=== PATIENT | male | born 1955 | race African-American/Black ===

== ENCOUNTER 2021-05-11 18:12 | Inpatient (IN) | payer OTHER ==
[~2021-05-11] VITALS: Ht 180.3 cm; Wt 92.1 kg
[2021-05-11] MEDS ORDERED: MORPHINE SULFATE 10 MG/ML VIAL. IV ONE (20:15)
--- NOTE | 2021-05-11 20:15 | PHYS DOC ---
Past Medical History Past Medical History: CAD Past Surgical History: Coronary Bypass Surgery Smoking Status: Never Smoker Alcohol Use: None Drug Use: None General Adult EDM: Chief Complaint: ABDOMINAL PAIN HPI: HPI: 65-year-old male with a history of CAD status post CABG presents to the emergency department with multiple complaints including abdominal pain around his hernia site that started yesterday. He reports that he has been sore around his hernia for several months, but last night he had increasing pain in the hernia area notes that his stools have been lower caliber without any looseness for the last several days. Denies any blood. He reports that he feels like he is going to pass out at times that has been intermittent for the last several weeks. He denies any chest pain. He admits to some shortness of breath without cough or fever. Denies any vomiting or nausea. He reports his pain is worse upon going up the stairs in his abdomen. He denies any acute trauma. Review of Systems: Review of Systems: ROS is otherwise negative except for what was mentioned in the HPI Heart Score: C/O Chest Pain: No Allergies: Allergies: No known allergies Physical Exam: PE: Constitutional: No acute distress, non-toxic appearance. HENT: Atraumatic, bilateral external ears normal, nose normal. Eyes: PERRLA, EOMI, conjunctiva normal, no discharge. Neck: Normal range of motion, supple, no stridor. Cardiovascular: Heart rate regular rhythm. 2+ radial pulses Lungs & Thorax: No respiratory distress, symmetrical expansion. Bilateral breath sounds clear to auscultation Abdomen: Soft, no tenderness Skin: Warm, dry. Genitourinary: No evidence of infection, no scrotal tenderness, no erythema, there is diffuse edema to the scrotum and penis Extremities: No tenderness, no cyanosis, ROM intact, 2+ lower extremity edema present Neurologic: Alert and oriented X 3, normal motor function, normal sensory function, no focal deficits noted. Non ataxic gait. GCS 15. Psychologic: Affect normal, judgment normal, mood normal. Current Patient Data: Labs: Laboratory Tests Test 05/11/21 20:18 05/11/21 21:33 White Blood Count 7.7 x10^3/uL (4.0-11.0) Red Blood Count 4.32 x10^6/uL (4.30-5.70) Hemoglobin 13.2 g/dL (13.0-17.5) Hematocrit 40.0 % (39.0-53.0) Mean Corpuscular Volume 93 fL (79-100) Mean Corpuscular Hemoglobin 31 pg (25-35) Mean Corpuscular Hemoglobin Concent 33 g/dL (31-37) Red Cell Distribution Width 15.6 % (11.5-14.5) Platelet Count 157 x10^3/uL (140-400) Neutrophils (%) (Auto) 77 % (31-73) Lymphocytes (%) (Auto) 12 % (24-48) Monocytes (%) (Auto) 10 % (0-9) Eosinophils (%) (Auto) 1 % (0-3) Basophils (%) (Auto) 1 % (0-3) Neutrophils # (Auto) 5.9 x10^3/uL (1.8-7.7) Lymphocytes # (Auto) 0.9 x10^3/uL (1.0-4.8) Monocytes # (Auto) 0.8 x10^3/uL (0.0-1.1) Eosinophils # (Auto) 0.1 x10^3/uL (0.0-0.7) Basophils # (Auto) 0.0 x10^3/uL (0.0-0.2) Sodium Level 143 mmol/L (136-145) Potassium Level 3.9 mmol/L (3.5-5.1) Chloride Level 103 mmol/L (98-107) Carbon Dioxide Level 36 mmol/L (21-32) Anion Gap 4 (6-14) Blood Urea Nitrogen 19 mg/dL (8-26) Creatinine 1.4 mg/dL (0.7-1.3) Estimated GFR (Cockcroft-Gault) 61.7 BUN/Creatinine Ratio 14 (6-20) Glucose Level 89 mg/dL (70-99) Calcium Level 8.4 mg/dL (8.5-10.1) Total Bilirubin 1.1 mg/dL (0.2-1.0) Aspartate Amino Transf (AST/SGOT) 54 U/L (15-37) Alanine Aminotransferase (ALT/SGPT) 44 U/L (16-63) Alkaline Phosphatase 102 U/L (46-116) Troponin I Quantitative 0.226 ng/mL (0.000-0.055) PY-Kpn-O-Type Natriuretic Peptide 5330 pg/mL (0-124) Total Protein 6.7 g/dL (6.4-8.2) Albumin 2.8 g/dL (3.4-5.0) Albumin/Globulin Ratio 0.7 (1.0-1.7) Lipase 88 U/L (73-393) Prothrombin Time 14.5 SEC (11.7-14.0) Prothromb Time International Ratio 1.1 (0.8-1.1) Activated Partial Thromboplast Time 29 SEC (24-38) Vital Signs: Vital Signs Date Time Temp Pulse Resp B/P (MAP) Pulse Ox O2 Delivery O2 Flow Rate FiO2 05/11/21 23:15 64 18 167/70 (102) 96 Nasal Cannula 2.0 05/11/21 21:45 64 18 174/74 (107) 97 05/11/21 21:37 73 183/78 05/11/21 21:30 72 19 183/78 (113) 98 05/11/21 21:00 78 18 201/89 (126) 92 Nasal Cannula 2.0 05/11/21 20:53 96 Room Air 05/11/21 20:52 78 22 201/89 (126) 96 Room Air 05/11/21 20:22 76 28 189/82 (117) 95 Room Air 05/11/21 19:45 98.1 87 20 172/109 (130) 97 Room Air 98.1 EKG: EKG: Time read: 2008 Normal sinus rhythm rate of 80, T wave inversions are present in the lateral and inferior leads, 2 mm elevation in V2, occasional PAC, normal axis, normal IL, QRS, and QTc intervals. Impression: Nonspecific ST-T wave changes, no prior for comparison. Interpreted by me, Durga Faustin D.O. Repeat EKG at 2106 shows no acute change. Radiology/Procedures: Radiology/Procedures: PROCEDURE: CT ABD PELV W/ORAL&IV CONTRAST INDICATION: Reason: abd pain, hernia;OMNI 240,30ML; OMNI 300, 75ML / Spl. Instructions: / History: COMPARISON: None. TECHNIQUE: Axial CT images were obtained through the abdomen and pelvis with intravenous co ntrast. One or more of the following individualized dose reduction techniques were utilized for this examination: 1. Automated exposure control; 2. Adjustment of the mA and/or kV according to patient size; 3. Use of iterative reconstruction technique. FINDINGS: Small pleural effusions partially seen as well as groundglass and interstitial opacities at the lung bases. The heart is enlarged. Vascular: Calcific atherosclerosis. Diffuse edema and fluid at the scrotal soft tissues extending into the subc utaneous soft tissues of the penis. There is also edema seen throughout the fat within the upper legs as well as the abdomen and pelvis. Hepatobiliary: Mild nodularity of the liver contour. Mild prominence of the gallbladder wall suspected. Pancreas: Indistinctness the fat within the region. Indeterminate left adrenal nodule measuring 21 mm. Spleen: Spleen unremarkable. Renal/Bladder: Exophytic right renal lesion which does not measure as a simple cyst measuring 27 mm. Additional suspected subcentimeter too small to characterize left renal lesions. No hydronephrosis. Urinary bladder is partially distended. Prostate calcifications. Gastrointestinal: There is some presacral edema. Colonic diverticulosis. Fat- containing umbilical hernia. Appendix does not appear dilated. Degenerative changes the spine with multilevel central canal and neural foraminal stenosis. IMPRESSION: * No evidence of bowel obstruction or appendicitis. * Diffuse edema throughout the soft tissues as well as small pleural effusions which could be secondary to volume overload. There is also groundglass and interstitial opacities at the lung bases which can be from edema or interstitial infiltrate. * There is a large amount of fluid and edema seen at the scrotal wall soft tissues extending into the penile region. Would correlate with physical exam findings to ensure that this is not infectious in nature. There is edema seen throughout the soft tissues elsewhere in the abdomen and pelvis which could be secondary to volume overload. * Mild prominence of the gallbladder wall is suspected which is a nonspecific finding and could be related to the patient's volume overload but would correlate with symptoms and if there is any symptoms ultrasound could better assess to ensure there is not gallbladder inflammation. * Haziness the fat is also seen adjacent to the pancreas which could be related to the patient's diffuse edematous process but mild pancreatitis is not excluded. * Indeterminate left adrenal nodule as well as a couple of indeterminate bilateral renal lesions. If further evaluation is desired either MRI or CT adrenal and renal protocol could further assess on a nonemergent basis. * Fat-containing left inguinal and umbilical hernia. Electronically signed by: Carroll Saunders MD (05/11/2021 11:13 PM) DESKTOP- [id number] Course & Med Decision Making: Course & Med Decision Making Patient with evidence of fluid overload on examination. EKG showed J-point elevation in V2 but, no obvious STEMI pattern. I discussed the EKG with retail key holder. he was given Lasix, aspirin. Care discussed with retail key holder Dr. Zheng who recommends heparin drip and admission to the hospital. Patient remains without chest pain or typical ACS symptoms. CT scan is as above, there is no infectious signs on examination suggestive of Sanju's gangrene, patient likely has anasarca from CHF exacerbation My Orders - DURGA FAUSTIN DO Procedure Category Date Status Time Ct Abd Pelv W/Oral&Iv CT 05/11/21 Resulted Contrast 20:05 Morphine Sulfate PHA 05/11/21 Complete (Morphine Sulfate) 20:15 Portable Chest 1v RAD 05/11/21 Taken 20:05 Nt-Pro Bnp LAB 05/11/21 Complete 20:05 [facility] LAB 05/11/21 Complete 20:05 [facility] 05/11/21 Logged 23:05 [facility] LAB 05/12/21 Verified 02:05 12 Lead Ekg EKG 05/11/21 Logged 20:05 12 Lead Ekg EKG 05/11/21 Logged 20:35 Partial LAB 05/11/21 Complete Thromboplastin Time 20:58 Protime With Inr LAB 05/11/21 Complete 20:58 Heparin CARLINE 05/11/21 In Process Administration Instruc 20:58 Notify Provider CARLINE 05/11/21 In Process 20:58 Hemogram LAB 05/12/21 Verified 05:00 Hemogram LAB 05/14/21 Verified 05:00 Hemogram LAB 05/16/21 Verified 05:[address] Lab CARLINE 05/11/21 In Process Order 20:58 Heparin For Iv Bolus PHA 05/11/21 Complete (Heparin Sodium) 21:00 Heparin PHA 05/11/21 In Process 25,000uts/250ml 21:00 Heparin For Iv Bolus PHA 05/11/21 In Process (Heparin Sodium) 21:00 Cbc W Autodiff LAB 05/11/21 Complete 21:08 Comprehensive LAB 05/11/21 Complete Metabolic Panel 21:08 Lipase LAB 05/11/21 Complete 21:08 Labetalol Iv Push PHA 05/11/21 Complete (Normodyne Iv Push) 21:15 Sars Cov2 ([place]) LAB 05/11/21 In Process 21:32 Sars Antigen Adelita Rapid LAB 05/11/21 In Process 21:32 Iohexol 240 Mg/Ml PHA 05/11/21 Complete (Omnipaque 240 Mg/Ml) 22:00 Iohexol 300 Mg/Ml PHA 05/11/21 Complete (Omnipaque 300 Mg/Ml) 22:00 Contrast Given -- PHA 05/11/21 In Process Info Only (Contrast Gi 22:00 Contrast Given -- PHA 05/11/21 In Process Info Only (Contrast Gi 22:00 Ondansetron Pf PHA 05/11/21 Complete (Zofran) 22:00 Metoclopramide Vial PHA 05/11/21 Complete (Reglan Vial) 22:30 Aspirin (Martín PHA 05/11/21 Complete Aspirin) 22:45 Furosemide Inj (Lasix) PHA 05/11/21 Complete 23:30 [place] Order ADT 05/11/21 Transmitted 23:26 Code Status CODE 05/11/21 Transmitted 23:26 Vital Signs, Per Unit CARLINE 05/11/21 In Process Protocol 23:26 Nothing By Mouth DIET 05/12/21 Transmitted Breakfast Fall Precautions CARLINE 05/11/21 In Process 23:26 Cbc W Autodiff LAB 05/12/21 Verified 06:00 Basic Metabolic Panel LAB 05/12/21 Verified 06:00 Ondansetron Pf PHA 05/11/21 In Process (Zofran) 23:30 Acetaminophen PHA 05/11/21 In Process (Tylenol) 23:30 Vp Treasurer CARLINE 05/11/21 In Process 23:26 Vital Signs Q4h CARLINE 05/11/21 In Process 23:26 Cardiology Consult CONS 05/11/21 Transmitted 23:26 Departure Departure Impression: Primary Impression: NSTEMI (non-ST elevated myocardial infarction) Additional Impression: Anasarca Disposition: 09 ADMITTED INPATIENT Admitting Physician: LILIANA Martinez) Condition: STABLE DURGA FAUSTIN DO May 11, 2021 20:15
[2021-05-11] MEDS ORDERED: HEPARIN 25,000UTS/250ML PREMIX 250 ML IV PRN (21:00)
[2021-05-11] MEDS ORDERED: HEPARIN for IV BOLUS 10,000 UNIT/10 ML VIAL. IV ONE (21:00)
[2021-05-11] MEDS ORDERED: HEPARIN for IV BOLUS 10,000 UNIT/10 ML VIAL. IV PRN (21:00)
[2021-05-11] MEDS ORDERED: LABETALOL 20 MG/4 ML DISP.SYRIN. IVP ONE (21:15)
[2021-05-11 21:43] LABS: BASO % 1 % (0-3); EOS # 0.1 x10^3/uL (0.0-0.7); EOS % 1 % (0-3); HEMOGLOBIN 13.2 g/dL (13.0-17.5); LYMPH # 0.9 x10^3/uL (1.0-4.8); LYMPH % 12 % (24-48); MEAN CORPUSCULAR HEMOGLOBIN 31 pg (25-35); MEAN CORPUSCULAR HGB CONC 33 g/dL (31-37); MEAN CORPUSCULAR VOLUME 93 fL (79-100); MONO # 0.8 x10^3/uL (0.0-1.1); MONO % 10 % (0-9); NEUT # 5.9 x10^3/uL (1.8-7.7); NEUT % 77 % (31-73); PLATELET COUNT 157 x10^3/uL (140-400); RED BLOOD COUNT 4.32 x10^6/uL (4.30-5.70); RED CELL DISTRIBUTION WIDTH 15.6 % (11.5-14.5); WHITE BLOOD COUNT 7.7 x10^3/uL (4.0-11.0)
[2021-05-11 21:46] LABS: CALCIUM 8.4 mg/dL (8.5-10.1); CREATININE 1.4 mg/dL (0.7-1.3); GFR 61.7; POTASSIUM 3.9 mmol/L (3.5-5.1)
[2021-05-11 21:49] LABS: PROTHROMBIN TIME PATIENT 14.5 SEC (11.7-14.0)
[2021-05-11 21:51] LABS: ALBUMIN 2.8 g/dL (3.4-5.0); ALBUMIN/GLOBULIN RATIO 0.7 (1.0-1.7); TOTAL BILIRUBIN 1.1 mg/dL (0.2-1.0); TOTAL PROTEIN 6.7 g/dL (6.4-8.2)
[2021-05-11] MEDS ORDERED: CONTRAST GIVEN. MC PRN ×2 (22:00)
[2021-05-11] MEDS ORDERED: ONDANSETRON PF 4 MG/2 ML VIAL. IVP ONE (22:00)
[2021-05-11] MEDS ORDERED: IOHEXOL 300 MG/ML 100ML VIAL. IV ONE (22:00)
[2021-05-11] MEDS ORDERED: IOHEXOL 240 MG/ML 50ML VIAL. PO ONE (22:00)
[2021-05-11] MEDS ORDERED: METOCLOPRAMIDE HCL 10 MG/2 ML VIAL. IVP ONE (22:30)
[2021-05-11] MEDS ORDERED: ASPIRIN 325 MG TABLET PO ONE (22:45)
--- NOTE | 2021-05-11 23:16 | RAD ---
INDICATION: Reason: abd pain, hernia;OMNI 240,30ML; OMNI 300, 75ML / Spl. Instructions: / History: COMPARISON: None. TECHNIQUE: Axial CT images were obtained through the abdomen and pelvis with intravenous contrast. One or more of the following individualized dose reduction techniques were utilized for this examinat ion: 1. Automated exposure control; 2. Adjustment of the mA and/or kV according to patient size; 3 . Use of iterative reconstruction technique. FINDINGS: Small pleural effusions partially seen as well as groundglass and interstitial opacities at the lung bases. The heart is enlarged. Vascular: Calcific atherosclerosis. Diffuse edema and fluid at the scrotal soft tissues extending into the subcutaneous soft tissues of t he penis. There is also edema seen throughout the fat within the upper legs as well as the abdomen and pelvis. Hepatobiliary: Mild nodularity of the liver contour. Mild prominence of the gallbladder wall suspecte d. Pancreas: Indistinctness the fat within the region. Indeterminate left adrenal nodule measuring 21 mm. Spleen: Spleen unremarkable. Renal/Bladder: Exophytic right renal lesion which does not measure as a simple cyst measuring 27 mm. Additional suspected subcentimeter too small to characterize left renal lesions. No hydronephrosis. U rinary bladder is partially distended. Prostate calcifications. Gastrointestinal: There is some presacral edema. Colonic diverticulosis. Fat-containing umbilical her silvia. Appendix does not appear dilated. Degenerative changes the spine with multilevel central canal and neural foraminal stenosis. IMPRESSION: * No evidence of bowel obstruction or appendicitis. * Diffuse edema throughout the soft tissues as well as small pleural effusions which could be second bryn to volume overload. There is also groundglass and interstitial opacities at the lung bases which can be from edema or interstitial infiltrate. * There is a large amount of fluid and edema seen at the scrotal wall soft tissues extending into th e penile region. Would correlate with physical exam findings to ensure that this is not infectious in nature. There is edema seen throughout the soft tissues elsewhere in the abdomen and pelvis which co uld be secondary to volume overload. * Mild prominence of the gallbladder wall is suspected which is a nonspecific finding and could be r elated to the patient's volume overload but would correlate with symptoms and if there is any symptom s ultrasound could better assess to ensure there is not gallbladder inflammation. * Haziness the fat is also seen adjacent to the pancreas which could be related to the patient's dif fuse edematous process but mild pancreatitis is not excluded. * Indeterminate left adrenal nodule as well as a couple of indeterminate bilateral renal lesions. If further evaluation is desired either MRI or CT adrenal and renal protocol could further assess on a nonemergent basis. * Fat-containing left inguinal and umbilical hernia. Electronically signed by: Carroll Saunders MD (05/11/2021 11:13 PM) [id number]
[2021-05-11] MEDS ORDERED: FUROSEMIDE 40 MG/4 ML VIAL. IVP ONE (23:30)
[2021-05-11] MEDS ORDERED: ACETAMINOPHEN 325 MG TABLET. PO PRN (23:30)
--- NOTE | 2021-05-12 00:09 | RAD ---
INDICATION: Reason: shortness of breath / Spl. Instructions: / History: COMPARISON: None. FINDINGS: Single view of chest obtained. Enlarged cardiomediastinal silhouette. Poststernotomy changes. Patchy opacities at lung bases Enlargement of the right pulmonary hilum IMPRESSION: * Enlarged cardiomediastinal Silhouette which can be seen with cardiomegaly and/or pericardial effus ion. * Enlargement of the right pulmonary hilum which can be from pulmonary hypertension with another pos sible cause including lymphadenopathy or a hilar mass. * Patchy opacities at the lung bases which can be seen with atelectasis or infiltrate. Electronically signed by: Carroll Saunders MD (05/12/2021 12:07 AM) [id number]
[2021-05-12] MEDS: ONDANSETRON PF 4 MG/2 ML VIAL. IVP PRN ×2 (00:19→09:00)
[2021-05-12 00:38] VITALS: BP 186/84
[2021-05-12] MEDS ORDERED: IOHEXOL 240 MG/ML 50ML VIAL. ONE (02:56)
[2021-05-12] MEDS ORDERED: IOHEXOL 300 MG/ML 100ML VIAL. ONE (02:56)
--- NOTE | 2021-05-12 03:20 | NUR ---
Admit from ED to [facility] room 650. A/O x 4. Pleasant. Cooperative. Fatigued. Edematous. O2 2L NC in place on arrival from ED as well as Heparin drip started in ER and infusing. Orientated to unit and call light. Reviewed POC. Verbalized understanding. Lasix 40mg IVP given in ER. Patient admits to urinary retention. Attempted Riojas cath placement for accurate I&O and retention. Unable to insert Riojas. Bloody urine noted after Riojas insertion attempt. Resting in bed. Call light at hand. Bed alarm on.
[2021-05-12 03:50] VITALS: BP 151/80
--- NOTE | 2021-05-12 04:45 | EKG ---
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
--- NOTE | 2021-05-12 04:46 | EKG ---
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
[2021-05-12 04:49] LABS: BASO % 0 % (0-3); EOS % 0 % (0-3); HEMATOCRIT 37.8 % (39.0-53.0); HEMOGLOBIN 12.6 g/dL (13.0-17.5); LYMPH # 0.4 x10^3/uL (1.0-4.8); LYMPH % 6 % (24-48); MEAN CORPUSCULAR HEMOGLOBIN 31 pg (25-35); MEAN CORPUSCULAR HGB CONC 33 g/dL (31-37); MEAN CORPUSCULAR VOLUME 93 fL (79-100); MONO # 0.2 x10^3/uL (0.0-1.1); MONO % 4 % (0-9); NEUT # 5.4 x10^3/uL (1.8-7.7); NEUT % 90 % (31-73); PLATELET COUNT 143 x10^3/uL (140-400); RED BLOOD COUNT 4.06 x10^6/uL (4.30-5.70); RED CELL DISTRIBUTION WIDTH 15.3 % (11.5-14.5)
[2021-05-12 05:02] LABS: CALCIUM 8.2 mg/dL (8.5-10.1); CREATININE 1.3 mg/dL (0.7-1.3); GFR 67.2; POTASSIUM 3.4 mmol/L (3.5-5.1)
--- NOTE | 2021-05-12 05:51 | NUR ---
Bladder scan reflects 230ML in bladder.
[2021-05-12 07:00] VITALS: BP 144/65
[2021-05-12] MEDS ORDERED: FLU VACC QUAD 21-22 (6MOS+) PF 0.5 ML SYRINGE. VAX IM ONE (09:00)
[2021-05-12 09:39] LABS: CHOLESTEROL/HDL RATIO 2.8
[2021-05-12] MEDS ORDERED: oxyCODONE/APAP 5/325 1 TAB TABLET PO PRN (10:45)
[2021-05-12] MEDS ORDERED: ACETAMINOPHEN 325 MG TABLET. PO PRN (10:45)
[2021-05-12] MEDS ORDERED: oxyCODONE IR 5 MG TABLET PO PRN (10:45)
[2021-05-12] MEDS ORDERED: ZOLPIDEM 5 MG TABLET. PO PRN (10:45)
[2021-05-12] MEDS ORDERED: POTASSIUM CHLORIDE 20 MEQ TABLET.ER. PO ONE (10:45)
[2021-05-12] MEDS ORDERED: ELECTROLYTE (NON-ICU) PROTOCOL. MC PRN (10:45)
[2021-05-12] MEDS ORDERED: ONDANSETRON PF 4 MG/2 ML VIAL. IVP PRN (10:45)
[2021-05-12] MEDS ORDERED: CALCIUM CARBONATE 500 MG TAB.CHEW PO PRN (10:45)
--- NOTE | 2021-05-12 10:50 | PDOC2 ---
KYLER WILSON MARINE ELECTRICIAN APPRENTICE 05/12/21 1050: CARDIAC CONSULT DATE OF CONSULT Date of Consult DATE: 05/12/21 TIME: 10:03 REASON FOR CONSULT Reason for Consult: NSTEMI REFERRING PHYSICIAN Referring Physician: Ramin SOURCE Source: Chart review, Patient HISTORY OF PRESENT ILLNESS HISTORY OF PRESENT ILLNESS This is a pleasant 65 yo male admitted for complains of abdominal pain. He is a poor historian. He denies any chest pain or SOA. He is positive for orthopnea, PND. No complains of palpitations. He has been feeling swollen all over more below his waist in the last month and worse in the last 2 weeks. His abdominal pain is diffuse and hurts when he urinates. He has CAD and had CABG unknown date at [facility]. Reports that he has not been following up with any roller embosser and that he takes 5 pills and could no recall any diuretics. He has been vaccinated for covid-19. Positive for vomiting and diarrhea. No fever or chills. PAST MEDICAL HISTORY Cardiovascular: CAD, HTN, Hyperlipidemia PAST SURGICAL HISTORY Past Surgical History: CABG FAMILY HISTORY Family History: Heart Disease SOCIAL HISTORY Smoke: No ALCOHOL: none Drugs: None Lives: Alone CURRENT MEDICATIONS CURRENT MEDICATIONS Current Medications Medications (Trade) Dose Ordered Sig/Janes Route PRN Reason Start Time Stop Time Status Last Admin Dose Admin Morphine Sulfate (Morphine Sulfate) 5 mg 1X ONCE IV 05/11/21 20:15 05/11/21 20:16 DC 05/11/21 20:53 Heparin Sodium (Porcine) (Heparin Sodium) 4,000 unit 1X ONCE IV 05/11/21 21:00 05/11/21 21:04 DC 05/11/21 21:41 Heparin Sodium/ Dextrose 250 ml @ 9.816 mls/ hr CONT PRN IV PER PROTOCOL 05/11/21 21:00 05/11/21 21:43 Heparin Sodium (Porcine) (Heparin Sodium) 2,050 unit PRN Q6HRS PRN IV FOR UFH LEVEL LESS THAN 0.2 05/11/21 21:00 05/12/21 05:05 Labetalol HCl (Normodyne Iv Push) 10 mg 1X ONCE IVP 05/11/21 21:15 05/11/21 21:16 DC 05/11/21 21:37 Iohexol (Omnipaque 240 Mg/ml) 30 ml 1X ONCE PO 05/11/21 22:00 05/11/21 22:02 DC 05/11/21 22:30 Iohexol (Omnipaque 300 Mg/ml) 75 ml 1X ONCE IV 05/11/21 22:00 05/11/21 22:02 DC 05/11/21 22:30 Ondansetron HCl (Zofran) 4 mg 1X ONCE IVP 05/11/21 22:00 05/11/21 22:02 DC 05/11/21 22:00 Metoclopramide HCl (Reglan Vial) 5 mg 1X ONCE IVP 05/11/21 22:30 05/11/21 22:32 DC 05/11/21 22:40 Aspirin (Martín Aspirin) 325 mg 1X ONCE PO 05/11/21 22:45 05/11/21 22:46 DC 05/11/21 23:22 Furosemide (Lasix) 40 mg 1X ONCE IVP 05/11/21 23:30 05/11/21 23:31 DC 05/12/21 00:11 Ondansetron HCl (Zofran) 4 mg PRN Q8HRS PRN IVP NAUSEA/VOMITING 05/11/21 23:30 05/12/21 23:29 05/12/21 09:00 ALLERGIES ALLERGIES: Coded Allergies: No Known Drug Allergies (Unverified , 05/11/21) ROS Review of System limited, poor historian PHYSICAL EXAM General: Alert, Oriented X3, Cooperative, No acute distress HEENT: Atraumatic, Mucous membr. moist/pink Lungs: Other (basilar crackles ) Heart: Regular rate (SR), Normal S1, Normal S2, Other (distant heart sounds) Abdomen: Soft Extremities: No cyanosis, Other (anasarca) Skin: No breakdown Neuro: Normal speech, Sensation intact Psych/Mental Status: Mental status NL, Mood NL MUSCULOSKELETAL: Osteoarthritic changes both hands VITALS/I&O VITALS/I&O: Vital Signs Date Time Temp Pulse Resp B/P (MAP) Pulse Ox O2 Delivery O2 Flow Rate FiO2 05/12/21 07:00 97.3 65 16 144/65 (91) 95 Room Air 97.3 05/12/21 03:50 2.0 I & O 05/11/21 05/11/21 05/12/21 15:00 23:00 07:00 Intake Total 0 ml Output Total 1050 ml Balance -1050 ml LABS Lab: Laboratory Tests Test 05/11/21 20:18 05/11/21 21:33 05/11/21 23:25 05/12/21 00:13 White Blood Count 7.7 x10^3/uL (4.0-11.0) Red Blood Count 4.32 x10^6/uL (4.30-5.70) Hemoglobin 13.2 g/dL (13.0-17.5) Hematocrit 40.0 % (39.0-53.0) Mean Corpuscular Volume 93 fL (79-100) Mean Corpuscular Hemoglobin 31 pg (25-35) Mean Corpuscular Hemoglobin Concent 33 g/dL (31-37) Red Cell Distribution Width 15.6 % (11.5-14.5) H Platelet Count 157 x10^3/uL (140-400) Neutrophils (%) (Auto) 77 % (31-73) H Lymphocytes (%) (Auto) 12 % (24-48) L Monocytes (%) (Auto) 10 % (0-9) H Eosinophils (%) (Auto) 1 % (0-3) Basophils (%) (Auto) 1 % (0-3) Neutrophils # (Auto) 5.9 x10^3/uL (1.8-7.7) Lymphocytes # (Auto) 0.9 x10^3/uL (1.0-4.8) L Monocytes # (Auto) 0.8 x10^3/uL (0.0-1.1) Eosinophils # (Auto) 0.1 x10^3/uL (0.0-0.7) Basophils # (Auto) 0.0 x10^3/uL (0.0-0.2) Sodium Level 143 mmol/L (136-145) Potassium Level 3.9 mmol/L (3.5-5.1) Chloride Level 103 mmol/L (98-107) Carbon Dioxide Level 36 mmol/L (21-32) H Anion Gap 4 (6-14) L Blood Urea Nitrogen 19 mg/dL (8-26) Creatinine 1.4 mg/dL (0.7-1.3) H Estimated GFR (Cockcroft-Gault) 61.7 BUN/Creatinine Ratio 14 (6-20) Glucose Level 89 mg/dL (70-99) Calcium Level 8.4 mg/dL (8.5-10.1) L Total Bilirubin 1.1 mg/dL (0.2-1.0) H Aspartate Amino Transferase (AST) 54 U/L (15-37) H Alanine Aminotransferase (ALT) 44 U/L (16-63) Alkaline Phosphatase 102 U/L (46-116) Troponin I Quantitative 0.226 ng/mL (0.000-0.055) 0.181 ng/mL (0.000-0.055) UW-Piz-U-Type Natriuretic Peptide 5330 pg/mL (0-124) H Total Protein 6.7 g/dL (6.4-8.2) Albumin 2.8 g/dL (3.4-5.0) L Albumin/Globulin Ratio 0.7 (1.0-1.7) L Lipase 88 U/L (73-393) Prothrombin Time 14.5 SEC (11.7-14.0) H Prothrombin Time INR 1.1 (0.8-1.1) Activated Partial Thromboplast Time 29 SEC (24-38) SARS-CoV-2 Antigen (Rapid) Negative (NEGATIVE) Test 05/12/21 04:00 White Blood Count 6.0 x10^3/uL (4.0-11.0) Red Blood Count 4.06 x10^6/uL (4.30-5.70) L Hemoglobin 12.6 g/dL (13.0-17.5) L Hematocrit 37.8 % (39.0-53.0) L Mean Corpuscular Volume 93 fL (79-100) Mean Corpuscular Hemoglobin 31 pg (25-35) Mean Corpuscular Hemoglobin Concent 33 g/dL (31-37) Red Cell Distribution Width 15.3 % (11.5-14.5) H Platelet Count 143 x10^3/uL (140-400) Neutrophils (%) (Auto) 90 % (31-73) H Lymphocytes (%) (Auto) 6 % (24-48) L Monocytes (%) (Auto) 4 % (0-9) Eosinophils (%) (Auto) 0 % (0-3) Basophils (%) (Auto) 0 % (0-3) Neutrophils # (Auto) 5.4 x10^3/uL (1.8-7.7) Lymphocytes # (Auto) 0.4 x10^3/uL (1.0-4.8) L Monocytes # (Auto) 0.2 x10^3/uL (0.0-1.1) Eosinophils # (Auto) 0.0 x10^3/uL (0.0-0.7) Basophils # (Auto) 0.0 x10^3/uL (0.0-0.2) Heparin Anti-Xa Act, Unfractionated 0.16 IU/mL (0.30-0.70) L Sodium Level 141 mmol/L (136-145) Potassium Level 3.4 mmol/L (3.5-5.1) L Chloride Level 102 mmol/L (98-107) Carbon Dioxide Level 34 mmol/L (21-32) H Anion Gap 5 (6-14) L Blood Urea Nitrogen 19 mg/dL (8-26) Creatinine 1.3 mg/dL (0.7-1.3) Estimated GFR (Cockcroft-Gault) 67.2 Glucose Level 110 mg/dL (70-99) H Calcium Level 8.2 mg/dL (8.5-10.1) L Magnesium Level 2.0 mg/dL (1.8-2.4) Troponin I Quantitative 0.157 ng/mL (0.000-0.055) Triglycerides Level 34 mg/dL (0-150) Cholesterol Level 110 mg/dL (0-200) LDL Cholesterol, Calculated 64 mg/dL (0-100) VLDL Cholesterol, Calculated 7 mg/dL (0-40) Non-HDL Cholesterol Calculated 71 mg/dL (0-129) HDL Cholesterol 39 mg/dL (40-60) L Cholesterol/HDL Ratio 2.8 Thyroid Stimulating Hormone (TSH) 1.612 uIU/mL (0.358-3.74) Laboratory Tests 05/11/21 20:18 05/12/21 04:00 Laboratory Tests 05/11/21 20:18 05/12/21 04:00 ASSESSMENT/PLAN ASSESSMENT/PLAN 1. Acute on chronic with likely combined diastolic/systolic dysfunction 2. NSTEMI: suspect type demand mediated. CP free 3. Anasarca 4. CAD: past CABG unknown details 5. HTN: labile 6. Abdominal pain with dysuria and urinary retention 7. Obesity 8. Left inguinal and umbilical hernia 9. suspect cardiomyopathy Recommendations 1. Lasix therapy. K replacement 2. TTE today. UA 3. Obtain accurate med list and [facility] card records 4. ASA, coreg. DC heparin 5. Outpt ischemic w/u YEIMY HICKEY MD 05/12/21 5595: CARDIAC CONSULT ASSESSMENT/PLAN ASSESSMENT/PLAN Patient seen and examined. Agree with REFRIGERATOR REPAIRMAN's assessment and plan. Continue diuresis for acute on chronic systolic heart failure. Troponin elevation most probably demand ischemia/type II. 2D echo showed LVEF 30%. We will obtain records from [facility]'s cardiology. Plan ischemic evaluation as an outpatient in lieu of history of coronary artery disease s/p CABG. Thank you for your consultation. KYLER WILSON APRN May 12, 2021 10:50 YEIMY HICKEY MD May 12, 2021 16:45
[2021-05-12 11:00] VITALS: BP 139/65
[2021-05-12] MEDS: SENNOSIDES/DOCUSATE 8.6/50MG TABLET. PO SCH ×2 (11:28→21:00)
[2021-05-12] MEDS: oxyCODONE/APAP 5/325 1 TAB TABLET PO PRN (11:29)
[2021-05-12] MEDS: ASPIRIN ENTERIC COATED 81 MG TABLET.DR. PO SCH (11:29)
[2021-05-12] MEDS: CARVEDILOL 6.25 MG TABLET. PO SCH ×2 (11:30→16:33)
[2021-05-12] MEDS: FUROSEMIDE 40 MG/4 ML VIAL. IVP SCH ×2 (11:31→16:25)
--- NOTE | 2021-05-12 11:34 | NUR ---
SS following for discharge planning. SS reviewed pt chart and discussed with pt RN. Pt is from home and is currently requiring oxygen at two liters nasal canula. Pt on IV Lasix. Cardiology consulted. ECHO today. SS will continue to follow for discharge planning.
--- NOTE | 2021-05-12 14:49 | PDOC1 ---
History and Physical Date of Service: DOS: DATE: 05/12/21 TIME: 14:48 Chief Complaint: Problems: (1) CHF (congestive heart failure) (2) Anasarca History of Present Illness: HPI: 65-year-old male with a history of CAD status post CABG presents to the emergency department with multiple complaints including abdominal pain around his hernia site that started yesterday. He reports that he has been sore around his hernia for several months, but last night he had increasing pain in the hernia area notes that his stools have been lower caliber without any looseness for the last several days. Denies any blood. He reports that he feels like he is going to pass out at times that has been intermittent for the last several weeks. He denies any chest pain. He admits to some shortness of breath without cough or fever. Denies any vomiting or nausea. He reports his pain is worse upon going up the stairs in his abdomen. He denies any acute trauma. Patient also reporting notably increased swelling in his lower extremities and scrotum. Past Medical/Surgical History: PMH/PSH: CAD Allergies: Allergies: Coded Allergies: No Known Drug Allergies (Unverified , 05/11/21) Family History: Family History: Reviewed with patient, no known family history Social History: Social History: Denies alcohol tobacco drug use Current Medications: Current Medications Current Medications Morphine Sulfate (Morphine Sulfate) 5 mg 1X ONCE IV Last administered on 05/11/21at 20:53; Start 05/11/21 at 20:15; Stop 05/11/21 at 20:16; Status DC Heparin Sodium (Porcine) (Heparin Sodium) 4,000 unit 1X ONCE IV Last administered on 05/11/21at 21:41; Start 05/11/21 at 21:00; Stop 05/12/21 at 10:52; Status DC Heparin Sodium/ Dextrose 250 ml @ 9.816 mls/ hr CONT PRN IV PER PROTOCOL Last administered on 05/11/21at 21:43; Start 05/11/21 at 21:00; Stop 05/12/21 at 10:52; Status DC Heparin Sodium (Porcine) (Heparin Sodium) 2,050 unit PRN Q6HRS PRN IV FOR UFH LEVEL LESS THAN 0.2 Last administered on 05/12/21at 05:05; Start 05/11/21 at 21:00; Stop 05/12/21 at 10:52; Status DC Labetalol HCl (Normodyne Iv Push) 10 mg 1X ONCE IVP Last administered on 05/11/21at 21:37; Start 05/11/21 at 21:15; Stop 05/11/21 at 21:16; Status DC Iohexol (Omnipaque 240 Mg/ml) 30 ml 1X ONCE PO Last administered on 05/11/21at 22:30; Start 05/11/21 at 22:00; Stop 05/11/21 at 22:02; Status DC Iohexol (Omnipaque 300 Mg/ml) 75 ml 1X ONCE IV Last administered on 05/11/21at 22:30; Start 05/11/21 at 22:00; Stop 05/11/21 at 22:02; Status DC Info (CONTRAST GIVEN -- Rx MONITORING) 1 each PRN DAILY PRN MC SEE COMMENTS; Start 05/11/21 at 22:00; Stop 05/13/21 at 21:59 Info (CONTRAST GIVEN -- Rx MONITORING) 1 each PRN DAILY PRN MC SEE COMMENTS; Start 05/11/21 at 22:00; Stop 05/13/21 at 21:59; Status Cancel Ondansetron HCl (Zofran) 4 mg 1X ONCE IVP Last administered on 05/11/21at 22:00; Start 05/11/21 at 22:00; Stop 05/11/21 at 22:02; Status DC Metoclopramide HCl (Reglan Vial) 5 mg 1X ONCE IVP Last administered on 05/11/21at 22:40; Start 05/11/21 at 22:30; Stop 05/11/21 at 22:32; Status DC Aspirin (Martín Aspirin) 325 mg 1X ONCE PO Last administered on 05/11/21at 23: 22; Start 05/11/21 at 22:45; Stop 05/11/21 at 22:46; Status DC Furosemide (Lasix) 40 mg 1X ONCE IVP Last administered on 05/12/21at 00:11; Start 05/11/21 at 23:30; Stop 05/11/21 at 23:31; Status DC Ondansetron HCl (Zofran) 4 mg PRN Q8HRS PRN IVP NAUSEA/VOMITING Last administered on 05/12/21at 09:00; Start 05/11/21 at 23:30; Stop 05/12/21 at 23:29 Acetaminophen (Tylenol) 650 mg PRN Q4HRS PRN PO FEVER > 100.3'F; Start 05/11/21 at 23:30; Stop 05/12/21 at 23:29 Iohexol (Omnipaque 240 Mg/ml) 50 ml STK-MED ONCE .ROUTE ; Start 05/12/21 at 02:56; Stop 05/12/21 at 02:56; Status DC Iohexol (Omnipaque 300 Mg/ml) 100 ml STK-MED ONCE .ROUTE ; Start 05/12/21 at 02:56; Stop 05/12/21 at 02:57; Status DC Influenza Virus Vaccine Quadrival (Flulaval Quad [id number] Syringe) 0.5 ml ONCE ONCE VAX IM ; Start 05/12/21 at 09:00; Stop 05/12/21 at 09:01; Status DC Furosemide (Lasix) 40 mg [id number] IVP Last administered on 05/12/21at 11:31; Start 05/12/21 at 10:15 Ondansetron HCl (Zofran) 4 mg PRN Q6HRS PRN IVP NAUSEA/VOMITING; Start 05/12/21 at 10:45 Calcium Carbonate/ Glycine (Tums) 500 mg PRN Q3HRS PRN PO UPSET STOMACH; Start 05/12/21 at 10:45 Zolpidem Tartrate (Ambien) 5 mg PRN QHS PRN PO INSOMNIA, MAY REPEAT IN 1HR; Start 05/12/21 at 10:45 Info (Non-Icu Electrolyte Protocol) 1 ea PRN DAILY PRN MC SEE COMMENTS; Start 05/12/21 at 10:45 Oxycodone HCl (Roxicodone) 5 mg PRN Q3HRS PRN PO BREAKTHROUGH PAIN; Start 05/12/21 at 10:45 Oxycodone/ Acetaminophen (Percocet 5/325) 1 tab PRN Q4HRS PRN PO MILD PAIN, 1ST CHOICE Last administered on 05/12/21at 11:29; Start 05/12/21 at 10:45 Oxycodone/ Acetaminophen (Percocet 5/325) 2 tab PRN Q4HRS PRN PO MODERATE PAIN, SEVERE PAIN; Start 05/12/21 at 10:45 Acetaminophen (Tylenol) 650 mg PRN Q6HRS PRN PO Headaches, Temp > 101.5F; Start 05/12/21 at 10:45 Senna/Docusate Sodium (Senna Plus) 1 tab BID PO Last administered on 05/12/21at 11:28; Start 05/12/21 at 11:00 Carvedilol (Coreg) 6.25 mg BIDWMEALS PO Last administered on 05/12/21at 11:30; Start 05/12/21 at 12:00 Aspirin (Ecotrin) 81 mg DAILYWBKFT PO Last administered on 05/12/21at 11:29; Start 05/12/21 at 12:00 Potassium Chloride (Klor-Con) 20 meq DAILYWBKFT PO ; Start 05/13/21 at 08:00 Potassium Chloride (Klor-Con) 40 meq 1X ONCE PO Last administered on 05/12/21at 11:31; Start 05/12/21 at 10:45; Stop 05/12/21 at 10:48; Status DC Tamsulosin HCl (Flomax) 0.4 mg QHS PO ; Start 05/12/21 at 21:00 Active Scripts Active Reported No Known Medications Prior To Admisstion (Info) Each 1 Each MC ROS: Review of Systems Review of System Unless noted in HPI a 14 point review of system was negative Physical Exam: Vital Signs: Vital Signs Date Time Temp Pulse Resp B/P (MAP) Pulse Ox O2 Delivery O2 Flow Rate FiO2 05/12/21 11:30 69 139/65 05/12/21 11:29 Nasal Cannula 2.0 05/12/21 11:00 98.1 16 91 98.1 Physcial Exam: GEN: No apparent distress. Alert and oriented HEENT: Normal cephalic, atraumatic, external auditory canals are patent EYES: Extraocular muscles are intact, MUSCULOSKELETAL: Well developed , well nourished, good range of motion ENDOCRINE: No thyromegaly was palpated LYMPHATICS: No cervical chain or axillary nodes were noted HEMATOPOIETIC: No bruising NECK: Supple, no JVD, no thyromegaly was noted LUNGS: Crackles in bibasilar lobes HEART: RRR, S1, S2 present. Peripheral pulses intact, no obvious murmurs noted ABDOMEN: Soft, nontender. Positive bowel sounds, no organomegaly, normal bowel sounds EXTREMITIES: Bilateral lower extremity pitting edema NEUROLOGIC: Normal speech and tone. A&O x 3, moves all extremities, no obvious focal deficits PSYCHIATRIC: Normal affect, normal mood. Stable SKIN: No ulcerations or rashes, good skin turgor, no jaundice VASCULAR: Good capillary refill, neurovascular bundle appears to be intact Labs: Labs: Laboratory Tests Test 05/11/21 20:18 05/11/21 21:33 05/11/21 23:25 05/12/21 00:13 White Blood Count 7.7 x10^3/uL (4.0-11.0) Red Blood Count 4.32 x10^6/uL (4.30-5.70) Hemoglobin 13.2 g/dL (13.0-17.5) Hematocrit 40.0 % (39.0-53.0) Mean Corpuscular Volume 93 fL (79-100) Mean Corpuscular Hemoglobin 31 pg (25-35) Mean Corpuscular Hemoglobin Concent 33 g/dL (31-37) Red Cell Distribution Width 15.6 % (11.5-14.5) Platelet Count 157 x10^3/uL (140-400) Neutrophils (%) (Auto) 77 % (31-73) Lymphocytes (%) (Auto) 12 % (24-48) Monocytes (%) (Auto) 10 % (0-9) Eosinophils (%) (Auto) 1 % (0-3) Basophils (%) (Auto) 1 % (0-3) Neutrophils # (Auto) 5.9 x10^3/uL (1.8-7.7) Lymphocytes # (Auto) 0.9 x10^3/uL (1.0-4.8) Monocytes # (Auto) 0.8 x10^3/uL (0.0-1.1) Eosinophils # (Auto) 0.1 x10^3/uL (0.0-0.7) Basophils # (Auto) 0.0 x10^3/uL (0.0-0.2) Sodium Level 143 mmol/L (136-145) Potassium Level 3.9 mmol/L (3.5-5.1) Chloride Level 103 mmol/L (98-107) Carbon Dioxide Level 36 mmol/L (21-32) Anion Gap 4 (6-14) Blood Urea Nitrogen 19 mg/dL (8-26) Creatinine 1.4 mg/dL (0.7-1.3) Estimated GFR (Cockcroft-Gault) 61.7 BUN/Creatinine Ratio 14 (6-20) Glucose Level 89 mg/dL (70-99) Calcium Level 8.4 mg/dL (8.5-10.1) Total Bilirubin 1.1 mg/dL (0.2-1.0) Aspartate Amino Transf (AST/SGOT) 54 U/L (15-37) Alanine Aminotransferase (ALT/SGPT) 44 U/L (16-63) Alkaline Phosphatase 102 U/L (46-116) Troponin I Quantitative 0.226 ng/mL (0.000-0.055) 0.181 ng/mL (0.000-0.055) XC-Xzc-B-Type Natriuretic Peptide 5330 pg/mL (0-124) Total Protein 6.7 g/dL (6.4-8.2) Albumin 2.8 g/dL (3.4-5.0) Albumin/Globulin Ratio 0.7 (1.0-1.7) Lipase 88 U/L (73-393) Prothrombin Time 14.5 SEC (11.7-14.0) Prothromb Time International Ratio 1.1 (0.8-1.1) Activated Partial Thromboplast Time 29 SEC (24-38) SARS-CoV-2 RNA (SEGUN) Negative (Negative) SARS-CoV-2 Antigen (Rapid) Negative (NEGATIVE) Test 05/12/21 04:00 White Blood Count 6.0 x10^3/uL (4.0-11.0) Red Blood Count 4.06 x10^6/uL (4.30-5.70) Hemoglobin 12.6 g/dL (13.0-17.5) Hematocrit 37.8 % (39.0-53.0) Mean Corpuscular Volume 93 fL (79-100) Mean Corpuscular Hemoglobin 31 pg (25-35) Mean Corpuscular Hemoglobin Concent 33 g/dL (31-37) Red Cell Distribution Width 15.3 % (11.5-14.5) Platelet Count 143 x10^3/uL (140-400) Neutrophils (%) (Auto) 90 % (31-73) Lymphocytes (%) (Auto) 6 % (24-48) Monocytes (%) (Auto) 4 % (0-9) Eosinophils (%) (Auto) 0 % (0-3) Basophils (%) (Auto) 0 % (0-3) Neutrophils # (Auto) 5.4 x10^3/uL (1.8-7.7) Lymphocytes # (Auto) 0.4 x10^3/uL (1.0-4.8) Monocytes # (Auto) 0.2 x10^3/uL (0.0-1.1) Eosinophils # (Auto) 0.0 x10^3/uL (0.0-0.7) Basophils # (Auto) 0.0 x10^3/uL (0.0-0.2) Heparin Anti-Xa Act, Unfractionated 0.16 IU/mL (0.30-0.70) Sodium Level 141 mmol/L (136-145) Potassium Level 3.4 mmol/L (3.5-5.1) Chloride Level 102 mmol/L (98-107) Carbon Dioxide Level 34 mmol/L (21-32) Anion Gap 5 (6-14) Blood Urea Nitrogen 19 mg/dL (8-26) Creatinine 1.3 mg/dL (0.7-1.3) Estimated GFR (Cockcroft-Gault) 67.2 Glucose Level 110 mg/dL (70-99) Calcium Level 8.2 mg/dL (8.5-10.1) Magnesium Level 2.0 mg/dL (1.8-2.4) Troponin I Quantitative 0.157 ng/mL (0.000-0.055) Triglycerides Level 34 mg/dL (0-150) Cholesterol Level 110 mg/dL (0-200) LDL Cholesterol, Calculated 64 mg/dL (0-100) VLDL Cholesterol, Calculated 7 mg/dL (0-40) Non-HDL Cholesterol Calculated 71 mg/dL (0-129) HDL Cholesterol 39 mg/dL (40-60) Cholesterol/HDL Ratio 2.8 Thyroid Stimulating Hormone (TSH) 1.612 uIU/mL (0.358-3.74) Laboratory Tests Test 05/11/21 20:18 05/11/21 21:33 05/11/21 23:25 05/12/21 00:13 White Blood Count 7.7 x10^3/uL (4.0-11.0) Red Blood Count 4.32 x10^6/uL (4.30-5.70) Hemoglobin 13.2 g/dL (13.0-17.5) Hematocrit 40.0 % (39.0-53.0) Mean Corpuscular Volume 93 fL (79-100) Mean Corpuscular Hemoglobin 31 pg (25-35) Mean Corpuscular Hemoglobin Concent 33 g/dL (31-37) Red Cell Distribution Width 15.6 % (11.5-14.5) Platelet Count 157 x10^3/uL (140-400) Neutrophils (%) (Auto) 77 % (31-73) Lymphocytes (%) (Auto) 12 % (24-48) Monocytes (%) (Auto) 10 % (0-9) Eosinophils (%) (Auto) 1 % (0-3) Basophils (%) (Auto) 1 % (0-3) Neutrophils # (Auto) 5.9 x10^3/uL (1.8-7.7) Lymphocytes # (Auto) 0.9 x10^3/uL (1.0-4.8) Monocytes # (Auto) 0.8 x10^3/uL (0.0-1.1) Eosinophils # (Auto) 0.1 x10^3/uL (0.0-0.7) Basophils # (Auto) 0.0 x10^3/uL (0.0-0.2) Sodium Level 143 mmol/L (136-145) Potassium Level 3.9 mmol/L (3.5-5.1) Chloride Level 103 mmol/L (98-107) Carbon Dioxide Level 36 mmol/L (21-32) Anion Gap 4 (6-14) Blood Urea Nitrogen 19 mg/dL (8-26) Creatinine 1.4 mg/dL (0.7-1.3) Estimated GFR (Cockcroft-Gault) 61.7 BUN/Creatinine Ratio 14 (6-20) Glucose Level 89 mg/dL (70-99) Calcium Level 8.4 mg/dL (8.5-10.1) Total Bilirubin 1.1 mg/dL (0.2-1.0) Aspartate Amino Transf (AST/SGOT) 54 U/L (15-37) Alanine Aminotransferase (ALT/SGPT) 44 U/L (16-63) Alkaline Phosphatase 102 U/L (46-116) Troponin I Quantitative 0.226 ng/mL (0.000-0.055) 0.181 ng/mL (0.000-0.055) JX-Orp-G-Type Natriuretic Peptide 5330 pg/mL (0-124) Total Protein 6.7 g/dL (6.4-8.2) Albumin 2.8 g/dL (3.4-5.0) Albumin/Globulin Ratio 0.7 (1.0-1.7) Lipase 88 U/L (73-393) Prothrombin Time 14.5 SEC (11.7-14.0) Prothromb Time International Ratio 1.1 (0.8-1.1) Activated Partial Thromboplast Time 29 SEC (24-38) SARS-CoV-2 RNA (SEGUN) Negative (Negative) SARS-CoV-2 Antigen (Rapid) Negative (NEGATIVE) Test 05/12/21 04:00 White Blood Count 6.0 x10^3/uL (4.0-11.0) Red Blood Count 4.06 x10^6/uL (4.30-5.70) Hemoglobin 12.6 g/dL (13.0-17.5) Hematocrit 37.8 % (39.0-53.0) Mean Corpuscular Volume 93 fL (79-100) Mean Corpuscular Hemoglobin 31 pg (25-35) Mean Corpuscular Hemoglobin Concent 33 g/dL (31-37) Red Cell Distribution Width 15.3 % (11.5-14.5) Platelet Count 143 x10^3/uL (140-400) Neutrophils (%) (Auto) 90 % (31-73) Lymphocytes (%) (Auto) 6 % (24-48) Monocytes (%) (Auto) 4 % (0-9) Eosinophils (%) (Auto) 0 % (0-3) Basophils (%) (Auto) 0 % (0-3) Neutrophils # (Auto) 5.4 x10^3/uL (1.8-7.7) Lymphocytes # (Auto) 0.4 x10^3/uL (1.0-4.8) Monocytes # (Auto) 0.2 x10^3/uL (0.0-1.1) Eosinophils # (Auto) 0.0 x10^3/uL (0.0-0.7) Basophils # (Auto) 0.0 x10^3/uL (0.0-0.2) Heparin Anti-Xa Act, Unfractionated 0.16 IU/mL (0.30-0.70) Sodium Level 141 mmol/L (136-145) Potassium Level 3.4 mmol/L (3.5-5.1) Chloride Level 102 mmol/L (98-107) Carbon Dioxide Level 34 mmol/L (21-32) Anion Gap 5 (6-14) Blood Urea Nitrogen 19 mg/dL (8-26) Creatinine 1.3 mg/dL (0.7-1.3) Estimated GFR (Cockcroft-Gault) 67.2 Glucose Level 110 mg/dL (70-99) Calcium Level 8.2 mg/dL (8.5-10.1) Magnesium Level 2.0 mg/dL (1.8-2.4) Troponin I Quantitative 0.157 ng/mL (0.000-0.055) Triglycerides Level 34 mg/dL (0-150) Cholesterol Level 110 mg/dL (0-200) LDL Cholesterol, Calculated 64 mg/dL (0-100) VLDL Cholesterol, Calculated 7 mg/dL (0-40) Non-HDL Cholesterol Calculated 71 mg/dL (0-129) HDL Cholesterol 39 mg/dL (40-60) Cholesterol/HDL Ratio 2.8 Thyroid Stimulating Hormone (TSH) 1.612 uIU/mL (0.358-3.74) Assessment/Plan Assessment/Plan Acute on chronic CHF NSTEMI, BPH, UTI -Patient presenting with lower abdominal pain, also reporting decreased urine output due to pain. -Patient also reporting notably more swollen -Suspect patient with CHF exacerbation based upon symptoms and clinical presentation. Will treat with IV Lasix for now. May require something like Bumex if does not diurese appropriately -Unable to insert [place]jas catheter due to BPH will try some Flomax -Elevated troponins demand ischemia -Patient does not know the medications he is currently on. Follows with cardiology at [facility] -DVT prophylaxis -Cardiac diet. Fluid restriction -Plan of care discussed with bedside RN -I spent approximately 25 minutes discussing advance care planning with the jeramie allen. Justifications for Admission Other Justification CASH GOMEZ MD May 12, 2021 14:48
--- NOTE | 2021-05-12 15:56 | CARD ---
MR#: [id number] Date of Study: 05/12/2021 Ordering Physician: KYLER WILSON, Referring Physician: KYLER WILSON Tech: Ngozi Gomez [facility] APPROVED REPORT EXAM: Two-dimensional and M-mode echocardiogram with Doppler and color Doppler. Other Information Quality : Technically LimitedHR: 68bpm Rhythm : NSR INDICATION Cardiac Disease: CAD RISK FACTORS Hypertension Obesity Hyperlipidemia Diabetes 2D DIMENSIONS RVDd4.9 (2.9-3.5cm)Left Atrium(2D)4.9 (1.6-4.0cm) IVSd2.1 (0.7-1.1cm)Aortic Root(2D)2.9 (2.0-3.7cm) LVDd5.7 (3.9-5.9cm)LVOT Diameter2.3 (1.8-2.4cm) PWd1.9 (0.7-1.1cm)LVDs4.8 (2.5-4.0cm) FS (%) 15.3 %SV51.2 ml LVEF(%)31.9 (>50%) Aortic Valve AoV Peak Karl.343.2cm/sAoV VTI83.9cm AO Peak GR.47.1mmHgLVOT Peak Karl.135.2cm/s AO Mean GR.26mmHgAVA (VMAX)1.61cm2 AI P 1/2 Jagl728kt Mitral Valve MV E Cwdknpxq601.8cm/sMV DECEL QWHZ020mg MV A Drbzwcqp91.2cm/sE/A Ratio1.2 Tricuspid Valve TR P. Pkcqykht946pf/sTR Peak Gr.67mmHg LEFT VENTRICLE The Left Ventricle is mildly dilated. There is moderate to severe concentric left ventricular hypertr ophy. The ejection fraction is severely impaired. EF 30% There is severe global hypokinesis of the le ft ventricle. Transmitral Doppler flow pattern is Grade II-pseudonormal filling dynamics. RIGHT VENTRICLE The right ventricle is mildly to moderately dilated. The right ventricle is mildly to moderately hype rtrophied. The right ventricular systolic function is normal. ATRIA The left atrium is moderately dilated. The right atrium is moderately dilated. The interatrial septum is intact with no evidence for an atrial septal defect or patent foramen ovale as noted on 2-D or Do ppler imaging. AORTIC VALVE The aortic valve is calcified and displays decreased opening. Doppler and Color Flow revealed mild ao rtic regurgitation. There is mild to moderate valvular aortic stenosis. MG 25 mm Hg. (This may undere stimated due to LV dysfunction. DI 0.33) MITRAL VALVE The mitral valve is normal in structure and function. There is no evidence of mitral valve prolapse. There is no mitral valve stenosis. Doppler and Color-flow revealed mild mitral regurgitation. TRICUSPID VALVE The tricuspid valve is normal in structure and function. Doppler and Color Flow revealed mild tricusp id regurgitation. Estimated PAP 60 mmHg. There is no tricuspid valve stenosis. PULMONIC VALVE The pulmonary valve is normal in structure and function. Doppler and Color Flow revealed mild pulmoni c valvular regurgitation. There is no pulmonic valvular stenosis. GREAT VESSELS The aortic root is normal in size. The ascending aorta is normal in size. The IVC is normal in size a nd collapses >50% with inspiration. PERICARDIAL EFFUSION There is no evidence of significant pericardial effusion. Critical Notification Critical Value: No <Conclusion> There is moderate to severe concentric left ventricular hypertrophy. The ejection fraction is severely impaired. EF 30% There is severe global hypokinesis of the left ventricle. There is mild to moderate valvular aortic stenosis. MG 25 mm Hg. (This may underestimated due to LV d ysfunction. DI 0.33) Doppler and Color Flow revealed mild tricuspid regurgitation. Estimated PAP 60 mmHg. Signed by : Kai Cummings, Electronically Approved : 05/12/2021 15:56:13
[2021-05-12 19:00] VITALS: BP 127/61
[2021-05-12] MEDS: TAMSULOSIN 0.4 MG CAP.ER.24H. PO SCH (21:00)
[2021-05-12 21:02] LABS: BILIRUBIN,URINE NEGATIVE (NEG); COLOR,URINE YELLOW; NITRITE,URINE NEGATIVE (NEG); PROTEIN,URINE NEGATIVE (NEG-TRACE)
[2021-05-12 21:08] LABS: CLARITY,URINE HAZY; RBC,URINE TNTC /HPF (0-2)
[2021-05-12 21:12] LABS: BACTERIA,URINE 0 /HPF (0-FEW)
[2021-05-12 22:56] VITALS: BP 125/61
[2021-05-13] VITALS (17 sets, daily range): BP systolic 108–158; BP diastolic 57–78
[2021-05-13] MEDS: FUROSEMIDE 40 MG/4 ML VIAL. IVP SCH ×2 (08:51→16:10)
[2021-05-13] MEDS: SENNOSIDES/DOCUSATE 8.6/50MG TABLET. PO SCH ×2 (08:51→19:42)
[2021-05-13] MEDS: POTASSIUM CHLORIDE 20 MEQ TABLET.ER. PO SCH (08:52)
[2021-05-13] MEDS: CARVEDILOL 6.25 MG TABLET. PO SCH ×2 (08:52→16:47)
[2021-05-13] MEDS: ASPIRIN ENTERIC COATED 81 MG TABLET.DR. PO SCH (08:53)
[2021-05-13] MEDS: cefTRIAXone IV Push 1 GM VIAL. IVP SCH (11:04)
[2021-05-13 11:12] LABS: CALCIUM 7.8 mg/dL (8.5-10.1); CREATININE 1.6 mg/dL (0.7-1.3); GFR 52.9; POTASSIUM 4.2 mmol/L (3.5-5.1)
--- NOTE | 2021-05-13 11:16 | NUR ---
SS following up with discharge planning. SS reviewed pt chart and discussed with pt RN. Pt is currently requiring oxygen at three liters nasal canula. Pt has no home oxygen. COVID19 negative. Cardiology following. Pt on IV Lasix and IV Rocephin. PT/OT recommended home with assistance. SS met with pt to discuss discharge planning and home healthcare. Pt undecided on home healthcare at this time and reported that he would discuss with his niece. Possible six minute walk needed prior to discharge to assess oxygen needs. SS will continue to follow for discharge planning.
--- NOTE | 2021-05-13 11:33 | PDOC ---
KYLER WILSON PIPE INSULATOR HELPER 05/13/21 1133: CARDIO Progress Notes Date and Time Date of Service 05/13/2021 Time of Evaluation 1000 Subjective Subjective: No Chest Pain, No shortness of breath, No Palpitations Vitals Vitals Vital Signs Date Time Temp Pulse Resp B/P (MAP) Pulse Ox O2 Delivery O2 Flow Rate FiO2 05/13/21 10:21 98.0 99 17 131/61 (84) 98 Nasal Cannula 3.0 98.0 Weight Weight [ ] Input and Output Intake and Output Intake and Output 05/13/21 07:00 Intake Total 760 ml Output Total 350 ml Balance 410 ml Intake Oral 760 ml Output Urine Total 350 ml Laboratory Labs Laboratory Tests Test 05/12/21 16:54 05/13/21 10:55 Urine Collection Type Unknown Urine Color Yellow Urine Clarity Hazy Urine pH 5.0 (<5.0-8.0) Urine Specific [place] 1.010 (1.000-1.030) Urine Protein Negative mg/dL (NEG-TRACE) Urine Glucose (UA) Negative mg/dL (NEG) Urine Ketones (Stick) Negative mg/dL (NEG) Urine Blood Large (NEG) Urine Nitrite Negative (NEG) Urine Bilirubin Negative (NEG) Urine Urobilinogen Dipstick 1.0 mg/dL (0.2 mg/dL) Urine Leukocyte Esterase Small (NEG) Urine RBC Tntc /HPF (0-2) Urine WBC 5-10 /HPF (0-4) Urine Squamous Epithelial Cells Occ /LPF Urine Bacteria 0 /HPF (0-FEW) Urine Mucus Mod /LPF Sodium Level 138 mmol/L (136-145) Potassium Level 4.2 mmol/L (3.5-5.1) Chloride Level 99 mmol/L (98-107) Carbon Dioxide Level 34 mmol/L (21-32) Anion Gap 5 (6-14) Blood Urea Nitrogen 25 mg/dL (8-26) Creatinine 1.6 mg/dL (0.7-1.3) Estimated GFR (Cockcroft-Gault) 52.9 Glucose Level 110 mg/dL (70-99) Calcium Level 7.8 mg/dL (8.5-10.1) Magnesium Level 2.1 mg/dL (1.8-2.4) Physical Exam HEENT: Neck Supple W Full Motion Chest: Symmetric LUNGS: Other (diminsihed bases) Heart: RRR (SR), murmurs (2/6 systolic murmur to ELIUD border) Abdomen: Soft N/T Extremities: Other (anasarca) Neurology: alert, oriented, follow commands Assessment Assessment 1. Acute on chronic with likely combined diastolic/systolic dysfunction 2. NSTEMI: suspect type demand mediated. CP free 3. Anasarca 4. CAD: past CABG unknown details 5. HTN: better 6. Abdominal pain: likely from urinary retention but CHF is contributing as well 7. Obesity 8. Left inguinal and umbilical hernia: per CT 9. Cardiomyopathy: EF at 30% 10. Moderate 11. UTI 12. NSVT Recommendations 1. Lasix therapy. K replacement. Will start on Milrinone drip. PVR may need rand to DD will defer to PCP 2. Obtain cardiac records 3. Strict I & O 4. ASA, coreg. Unable to titrate up coreg due to episodes of bradycardia in the 40s. Hold lisinopril for now with the start on milrinone 5. Outpt ischemic w/u 6. Consult SS for HH Justicifation of Admission Dx: Justifications for Admission: Justification of Admission Dx: Yes YEIMY HICKEY MD 05/13/21 1612: CARDIO Progress Notes Assessment Assessment Patient seen and examined. Agree with LINUX NETWORK SYSTEMS ADMINISTRATOR's assessment and plan. Agree with initiating milrinone infusion for inotropic support and continue diuresis for acute on chronic systolic heart failure. Troponin elevation most probably demand ischemia/type II. 2D echo showed LVEF 30%. We will obtain records from [facility]ology. Plan ischemic evaluation as an outpatient in lieu of history of coronary artery disease s/p CABG. KYLER WILSON APRN May 13, 2021 11:33 YEIMY HICKEY MD May 13, 2021 16:12
[2021-05-13] MEDS: MILRINONE 20MG/100ML PREMIX 100 ML IV PRN (12:37)
--- NOTE | 2021-05-13 13:03 | PDOC ---
[facility] [facility] PROGRESS NOTE Date of Service DOS: DATE: 05/13/21 TIME: 13:01 Chief Complaint Chief Complaint Lower abdominal pain History of Present Illness History of Present Illness 65-year-old male with a history of CAD status post CABG presents to the emergency department with multiple complaints including abdominal pain around his hernia site that started yesterday. He reports that he has been sore around his hernia for several months, but last night he had increasing pain in the hernia area notes that his stools have been lower caliber without any looseness for the last several days. Denies any blood. He reports that he feels like he is going to pass out at times that has been intermittent for the last several weeks. He denies any chest pain. He admits to some shortness of breath without cough or fever. Denies any vomiting or nausea. He reports his pain is worse upon going up the stairs in his abdomen. He denies any acute trauma. Patient also reporting notably increased swelling in his lower extremities and scrotum. 05/13 Patient examined and evaluated at bedside. Definitely fluid overloaded still discussed with cardiology they are planning to start milrinone. Says he is urinating little bit better less painful. Been able to get up and move around the chair. With all the burning patient is having with urination and symptomatic as a male will start Rocephin for suspected UTI. Urine results essentially 50-50. Vitals/I&O Vitals/I&O: Vital Signs Date Time Temp Pulse Resp B/P (MAP) Pulse Ox O2 Delivery O2 Flow Rate FiO2 05/13/21 10:21 98.0 99 17 131/61 (84) 98 Nasal Cannula 3.0 98.0 I & O 05/12/21 05/12/21 05/13/21 15:00 23:00 07:00 Intake Total 180 ml 280 ml 300 ml Output Total 50 ml 300 ml Balance 130 ml -20 ml 300 ml Physical Exam General: Alert, Oriented X3, Cooperative, No acute distress Heart: Regular rate (SR), Normal S1, Normal S2, Other (distant heart sounds) Lungs: Other (Course) Abdomen: Soft Extremities: No cyanosis, Other (anasarca) Skin: No breakdown Labs Labs: Laboratory Tests Test 05/12/21 16:54 05/13/21 10:55 Urine Collection Type Unknown Urine Color Yellow Urine Clarity Hazy Urine pH 5.0 (<5.0-8.0) Urine Specific [place] 1.010 (1.000-1.030) Urine Protein Negative mg/dL (NEG-TRACE) Urine Glucose (UA) Negative mg/dL (NEG) Urine Ketones (Stick) Negative mg/dL (NEG) Urine Blood Large (NEG) Urine Nitrite Negative (NEG) Urine Bilirubin Negative (NEG) Urine Urobilinogen Dipstick 1.0 mg/dL (0.2 mg/dL) Urine Leukocyte Esterase Small (NEG) Urine RBC Tntc /HPF (0-2) Urine WBC 5-10 /HPF (0-4) Urine Squamous Epithelial Cells Occ /LPF Urine Bacteria 0 /HPF (0-FEW) Urine Mucus Mod /LPF Sodium Level 138 mmol/L (136-145) Potassium Level 4.2 mmol/L (3.5-5.1) Chloride Level 99 mmol/L (98-107) Carbon Dioxide Level 34 mmol/L (21-32) Anion Gap 5 (6-14) Blood Urea Nitrogen 25 mg/dL (8-26) Creatinine 1.6 mg/dL (0.7-1.3) Estimated GFR (Cockcroft-Gault) 52.9 Glucose Level 110 mg/dL (70-99) Calcium Level 7.8 mg/dL (8.5-10.1) Magnesium Level 2.1 mg/dL (1.8-2.4) Assessment and Plan Assessmemt and Plan Problems Medical Problems: (1) Anasarca Status: Acute Acute on chronic CHF NSTEMI, BPH, UTI -Patient presenting with lower abdominal pain, also reporting decreased urine output due to pain. -Patient also reporting notably more swollen -Suspect patient with CHF exacerbation based upon symptoms and clinical presentation. Will treat with IV Lasix for now. May require something like Bumex if does not diurese appropriately -Unable to insert Riojas catheter due to BPH will try some Flomax -Rocephin for suspected UTI -Elevated troponins demand ischemia -Patient does not know the medications he is currently on. Follows with cardiology at [facility] -DVT prophylaxis -Cardiac diet. Fluid restriction -Plan of care discussed with bedside RN Comment Review of Relevant I have reviewed the following items cristian (where applicable) has been applied. Medications: Current Medications Medications (Trade) Dose Ordered Sig/Janes Route PRN Reason Start Time Stop Time Status Last Admin Dose Admin Potassium Chloride (Klor-Con) 20 meq [id number] PO 05/13/21 08:00 05/13/21 08:52 Tamsulosin HCl (Flomax) 0.4 mg QHS PO 05/12/21 21:00 05/12/21 21:00 Ceftriaxone Sodium (Rocephin) 1 gm Q24H IVP 05/13/21 11:00 05/13/21 11:04 Milrinone Lactate/ Dextrose 100 ml @ 4.091 mls/ hr CONT PRN IV SEE I/O RECORD 05/13/21 11:30 05/13/21 12:37 Justifications for Admission Other Justification CASH GOMZE MD May 13, 2021 13:03
[2021-05-13] MEDS: TAMSULOSIN 0.4 MG CAP.ER.24H. PO SCH (19:42)
[2021-05-13] MEDS: LACTOBACILLUS RHAMNOSUS GG 1 CAPSULE. PO SCH (19:42)
[2021-05-13] MEDS: ATORVASTATIN CALCIUM 20 MG TABLET PO SCH (19:42)
[2021-05-14] VITALS (11 sets, daily range): BP systolic 105–168; BP diastolic 52–79
[2021-05-14] MEDS: POTASSIUM CHLORIDE 20 MEQ TABLET.ER. PO SCH (08:05)
[2021-05-14] MEDS: FUROSEMIDE 40 MG/4 ML VIAL. IVP SCH ×2 (08:05→16:49)
[2021-05-14] MEDS: SENNOSIDES/DOCUSATE 8.6/50MG TABLET. PO SCH ×2 (08:05→20:24)
[2021-05-14] MEDS: CARVEDILOL 6.25 MG TABLET. PO SCH ×2 (08:06→16:50)
[2021-05-14] MEDS: ASPIRIN ENTERIC COATED 81 MG TABLET.DR. PO SCH (08:06)
[2021-05-14] MEDS: LACTOBACILLUS RHAMNOSUS GG 1 CAPSULE. PO SCH ×2 (09:00→20:24)
[2021-05-14 09:56] LABS: CALCIUM 7.9 mg/dL (8.5-10.1); CREATININE 1.5 mg/dL (0.7-1.3); POTASSIUM 3.8 mmol/L (3.5-5.1)
--- NOTE | 2021-05-14 10:13 | PDOC ---
KYLER WILSON TAX DIRECTOR 05/14/21 1013: CARDIO Progress Notes Date and Time Date of Service 05/14/2021 Time of Evaluation 0945 Subjective Subjective: No Chest Pain, No shortness of breath, No Palpitations Vitals Vitals Vital Signs Date Time Temp Pulse Resp B/P (MAP) Pulse Ox O2 Delivery O2 Flow Rate FiO2 05/14/21 08:06 85 167/70 05/14/21 08:00 Nasal Cannula 2.0 05/14/21 07:00 98.8 20 94 98.8 Weight Weight [ ] Input and Output Intake and Output Intake and Output 05/14/21 07:00 Intake Total 300 ml Output Total 1825 ml Balance -1525 ml Intake Oral 300 ml Output Urine Total 1825 ml # Bowel Movements 1 Laboratory Labs Laboratory Tests Test 05/13/21 10:55 05/13/21 16:57 05/14/21 09:00 Sodium Level 138 mmol/L (136-145) 137 mmol/L (136-145) Potassium Level 4.2 mmol/L (3.5-5.1) 3.8 mmol/L (3.5-5.1) Chloride Level 99 mmol/L (98-107) 98 mmol/L (98-107) Carbon Dioxide Level 34 mmol/L (21-32) 37 mmol/L (21-32) Anion Gap 5 (6-14) 2 (6-14) Blood Urea Nitrogen 25 mg/dL (8-26) 24 mg/dL (8-26) Creatinine 1.6 mg/dL (0.7-1.3) 1.5 mg/dL (0.7-1.3) Estimated GFR (Cockcroft-Gault) 52.9 57.0 Glucose Level 110 mg/dL (70-99) 118 mg/dL (70-99) Calcium Level 7.8 mg/dL (8.5-10.1) 7.9 mg/dL (8.5-10.1) Magnesium Level 2.1 mg/dL (1.8-2.4) 2.0 mg/dL (1.8-2.4) Glucose (Fingerstick) 250 mg/dL (70-99) Microbiology Micro Microbiology 05/12/21 Urine Culture - Final, Complete Physical Exam HEENT: Neck Supple W Full Motion Chest: Symmetric LUNGS: Other (diminsihed bases) Heart: RRR (SR with PACs), murmurs (2/6 systolic murmur to ELIUD border) Abdomen: Soft N/T Extremities: Other (anasarca) Neurology: alert, oriented, follow commands Assessment Assessment 1. Acute on chronic with likely combined diastolic/systolic dysfunction 2. NSTEMI: suspect type demand mediated. CP free 3. Anasarca 4. CAD: past CABG unknown details 5. HTN: better 6. Abdominal pain: likely from urinary retention but CHF is contributing as well. Improved 7. Obesity 8. Left inguinal and umbilical hernia: per CT 9. Cardiomyopathy: EF at 30% 10. Moderate 11. UTI 12. NSVT Recommendations 1. Lasix therapy. K replacement. Continue Milrinone drip 2. No cardiac records still, will review when available 3. Strict I & O. Standing wt 4. ASA, coreg. Unable to titrate up coreg due to episodes of bradycardia in the 40s. Hold lisinopril for now with the start on milrinone 5. Outpt ischemic w/u. Outpt f/u 6. Consult SS for HH Justicifation of Admission Dx: Justifications for Admission: Justification of Admission Dx: Yes YEIMY HICKEY MD 05/14/21 1435: CARDIO Progress Notes Assessment Assessment Patient seen and examined. Agree with ARMORED SERVICE TECHNICIAN's assessment and plan. Continue diuresis for acute on chronic systolic heart failure with inotropic support from milrinone infusion. Troponin elevation most probably demand ischemia/type II. 2D echo showed LVEF 30%. Plan ischemic evaluation as an outpatient in lieu of history of coronary artery disease s/p CABG. KYLER WILSON APRN May 14, 2021 10:13 YEIMY HICKEY MD May 14, 2021 14:35
[2021-05-14] MEDS ORDERED: LISINOPRIL 10 MG TABLET PO ONE (10:15)
[2021-05-14] MEDS: cefTRIAXone IV Push 1 GM VIAL. IVP SCH (10:44)
[2021-05-14] MEDS ORDERED: BUMETANIDE 1 MG TABLET. PO ONE (10:45)
[2021-05-14] MEDS: MILRINONE 20MG/100ML PREMIX 100 ML IV PRN (10:45)
--- NOTE | 2021-05-14 10:48 | PDOC ---
[facility] [facility] PROGRESS NOTE Date of Service DOS: DATE: 05/14/21 TIME: 10:45 Chief Complaint Chief Complaint Lower abdominal pain History of Present Illness History of Present Illness 65-year-old male with a history of CAD status post CABG presents to the emergency department with multiple complaints including abdominal pain around his hernia site that started yesterday. He reports that he has been sore around his hernia for several months, but last night he had increasing pain in the hernia area notes that his stools have been lower caliber without any looseness for the last several days. Denies any blood. He reports that he feels like he is going to pass out at times that has been intermittent for the last several weeks. He denies any chest pain. He admits to some shortness of breath without cough or fever. Denies any vomiting or nausea. He reports his pain is worse upon going up the stairs in his abdomen. He denies any acute trauma. Patient also reporting notably increased swelling in his lower extremities and scrotum. 05/13 Patient examined and evaluated at bedside. Definitely fluid overloaded still discussed with cardiology they are planning to start milrinone. Says he is urinating little bit better less painful. Been able to get up and move around the chair. With all the burning patient is having with urination and symptomatic as a male will start Rocephin for suspected UTI. Urine results essentially 50-50. 05/14 Patient evaluated and examined at bedside. Patient really have much complaint said he does still at times feel little short of breath and does still feel pretty swollen however has noticed it has improved. Net -1500 mL yesterday. Kidney function stable with all this diuresis. Continue milrinone drip. Continue Lasix. If no notable increase in output may be consider Bumex Vitals/I&O Vitals/I&O: Vital Signs Date Time Temp Pulse Resp B/P (MAP) Pulse Ox O2 Delivery O2 Flow Rate FiO2 05/14/21 08:06 85 167/70 05/14/21 08:00 Nasal Cannula 2.0 05/14/21 07:00 98.8 20 94 98.8 I & O 05/13/21 05/13/21 05/14/21 15:00 23:00 07:00 Intake Total 300 ml Output Total 100 ml 1175 ml 550 ml Balance 200 ml -1175 ml -550 ml Physical Exam General: Alert, Oriented X3, Cooperative, No acute distress Heart: Regular rate (SR), Normal S1, Normal S2, Other (distant heart sounds) Lungs: Other (Course) Abdomen: Soft Extremities: No cyanosis, Other (anasarca) Skin: No significant lesion Labs Labs: Laboratory Tests Test 05/13/21 10:55 05/13/21 16:57 05/14/21 09:00 Sodium Level 138 mmol/L (136-145) 137 mmol/L (136-145) Potassium Level 4.2 mmol/L (3.5-5.1) 3.8 mmol/L (3.5-5.1) Chloride Level 99 mmol/L (98-107) 98 mmol/L (98-107) Carbon Dioxide Level 34 mmol/L (21-32) 37 mmol/L (21-32) Anion Gap 5 (6-14) 2 (6-14) Blood Urea Nitrogen 25 mg/dL (8-26) 24 mg/dL (8-26) Creatinine 1.6 mg/dL (0.7-1.3) 1.5 mg/dL (0.7-1.3) Estimated GFR (Cockcroft-Gault) 52.9 57.0 Glucose Level 110 mg/dL (70-99) 118 mg/dL (70-99) Calcium Level 7.8 mg/dL (8.5-10.1) 7.9 mg/dL (8.5-10.1) Magnesium Level 2.1 mg/dL (1.8-2.4) 2.0 mg/dL (1.8-2.4) Glucose (Fingerstick) 250 mg/dL (70-99) Assessment and Plan Assessmemt and Plan Problems Medical Problems: (1) Anasarca Status: Acute Acute on chronic CHF NSTEMI, BPH, UTI -Patient presenting with lower abdominal pain, also reporting decreased urine output due to pain. -Patient also reporting notably more swollen -Suspect patient with CHF exacerbation based upon symptoms and clinical presentation. Will treat with IV Lasix and milrinone drip for now. May require something like Bumex if does not diurese appropriately -Unable to insert Riojas catheter due to BPH will try some Flomax -Rocephin for suspected UTI -Elevated troponins demand ischemia -Patient does not know the medications he is currently on. Follows with cardiology at [facility] or [facility] -DVT prophylaxis -Cardiac diet. Fluid restriction -Plan of care discussed with bedside RN Comment Review of Relevant I have reviewed the following items cristian (where applicable) has been applied. Medications: Current Medications Medications (Trade) Dose Ordered Sig/Janes Route PRN Reason Start Time Stop Time Status Last Admin Dose Admin Ceftriaxone Sodium (Rocephin) 1 gm Q24H IVP 05/13/21 11:00 05/13/21 11:04 Milrinone Lactate/ Dextrose 100 ml @ 4.091 mls/ hr CONT PRN IV SEE I/O RECORD 05/13/21 11:30 05/13/21 12:37 Atorvastatin Calcium (Lipitor) 20 mg QHS PO 05/13/21 21:00 05/13/21 19:42 Lactobacillus Rhamnosus (Culturelle) 1 cap BID PO 05/13/21 21:00 05/14/21 09:00 Justifications for Admission Other Justification CASH GOMEZ MD May 14, 2021 10:48
--- NOTE | 2021-05-14 12:44 | NUR ---
SS following up with discharge planning. SS reviewed pt chart and discussed with pt RN. Pt is currently requiring oxygen at two liters nasal canula. Pt has no home oxygen. COVID19 negative. Pt on IV Rocephin and IV Lasix. Milrinone drip. PT/OT recommended home with assistance. SS will continue to follow for discharge planning.
[2021-05-14] MEDS: ATORVASTATIN CALCIUM 20 MG TABLET PO SCH (20:24)
[2021-05-14] MEDS: TAMSULOSIN 0.4 MG CAP.ER.24H. PO SCH (20:24)
[2021-05-15] VITALS (12 sets, daily range): BP systolic 119–184; BP diastolic 57–77
[2021-05-15] MEDS: ASPIRIN ENTERIC COATED 81 MG TABLET.DR. PO SCH (07:54)
[2021-05-15] MEDS: LACTOBACILLUS RHAMNOSUS GG 1 CAPSULE. PO SCH ×2 (07:54→21:09)
[2021-05-15] MEDS: FUROSEMIDE 40 MG/4 ML VIAL. IVP SCH ×2 (07:54→16:03)
[2021-05-15] MEDS: SENNOSIDES/DOCUSATE 8.6/50MG TABLET. PO SCH ×2 (07:54→21:09)
[2021-05-15] MEDS: POTASSIUM CHLORIDE 20 MEQ TABLET.ER. PO SCH (07:54)
[2021-05-15] MEDS: CARVEDILOL 6.25 MG TABLET. PO SCH ×2 (07:56→16:03)
[2021-05-15] MEDS: LISINOPRIL 10 MG TABLET PO SCH (08:02)
[2021-05-15] MEDS: MILRINONE 20MG/100ML PREMIX 100 ML IV PRN (08:33)
[2021-05-15] MEDS: cefTRIAXone IV Push 1 GM VIAL. IVP SCH (11:07)
--- NOTE | 2021-05-15 11:18 | PDOC ---
PROGRESS NOTES Date of Service: DATE: 05/15/21 TIME: 11:14 Subjective Subjective Edema improved. Denied any chest pain or shortness of breath. Objective Objective Vital Signs Date Time Temp Pulse Resp B/P (MAP) Pulse Ox O2 Delivery O2 Flow Rate FiO2 05/15/21 10:58 98.3 65 18 127/67 (87) 99 Nasal Cannula 2.0 98.3 Intake and Output 05/15/21 07:00 Intake Total 850 ml Output Total 4700 ml Balance -3850 ml Intake Oral 850 ml Output Urine Total 4700 ml Physical Exam Abdomen: Soft Heart: Regular rate (SR), Normal S1, Normal S2, Other (distant heart sounds) Extremities: No cyanosis, Other (1+ pitting edema) General: Alert, Oriented X3, Cooperative, No acute distress HEENT: Atraumatic, Mucous membr. moist/pink Lungs: Other (basilar crackles ) MUSCULOSKELETAL: Osteoarthritic changes both hands Neuro: Normal speech, Sensation intact Psych/Mental Status: Mental status NL, Mood NL Skin: No significant lesion Assessment Assessment 1. Acute on chronic with likely combined systolic and diastolic heart failure. 2D echo showed LVEF 30%. Patient diuresing well with inotropic support with milrinone. I/O negative by 3.8 L. Continue diuresis. 2. NSTEMI: Most probably type II/demand ischemia. Will consider outpatient ischemic work-up. 3. Anasarca: Improved 4. CAD: past CABG, presently chest pain-free. Continue current secondary prevention measures. 5. HTN: Well controlled 6. Abdominal pain: likely from urinary retention but CHF is contributing as well. Improved 7. Moderate aortic stenosis 8. NSVT: No further episodes on telemetry Plan Plan of Care Problems Medical Problems: (1) Anasarca Status: Acute Comment Review of Relevant I have reviewed the following items cristian (where applicable) has been applied. Labs Microbiology 05/12/21 Urine Culture - Final, Complete Medications Current Medications Lisinopril (Prinivil) 10 mg DAILY PO Last administered on 05/15/21at 08:02; Start 05/15/21 at 09:00 Vitals/I & O Vital Sign - Last 24 Hours 05/14/21 05/14/21 05/14/21 05/14/21 14:09 16:50 19:55 20:00 Temp 98.5 98.1 98.5 98.1 Pulse 68 78 73 Resp 18 18 B/P (MAP) 105/52 (69) 105/52 134/63 (86) Pulse Ox 96 98 O2 Delivery Nasal Cannula Nasal Cannula Nasal Cannula O2 Flow Rate 2.0 2.0 2.0 05/14/21 05/14/21 05/14/21 05/14/21 20:35 22:30 22:35 23:35 Temp 98.3 98.3 Pulse 72 69 70 68 Resp 18 B/P (MAP) 168/79 (108) 124/58 (80) 129/60 (83) 135/61 (85) Pulse Ox 98 O2 Delivery Nasal Cannula O2 Flow Rate 2.0 05/15/21 05/15/21 05/15/21 05/15/21 00:35 01:35 02:35 02:52 Temp 98.3 98.3 Pulse 74 68 70 71 Resp 18 B/P (MAP) 159/70 (99) 159/72 (101) 136/57 (83) 159/72 (101) Pulse Ox 98 O2 Delivery Nasal Cannula O2 Flow Rate 2.0 05/15/21 05/15/21 05/15/21 05/15/21 03:35 04:35 05:35 06:25 Temp 97.8 97.8 Pulse 70 64 66 63 Resp 18 B/P (MAP) 124/58 (80) 148/67 (94) 135/60 (85) 135/60 (85) Pulse Ox 97 O2 Delivery Nasal Cannula O2 Flow Rate 2.0 05/15/21 05/15/21 05/15/21 05/15/21 07:56 08:00 08:02 10:58 Temp 98.3 98.3 Pulse 83 83 65 Resp 18 B/P (MAP) 125/63 125/63 127/67 (87) Pulse Ox 99 O2 Delivery Nasal Cannula Nasal Cannula O2 Flow Rate 2.0 2.0 Intake and Output 05/14/21 05/14/21 05/15/21 15:00 23:00 07:00 Intake Total 50 ml 800 ml Output Total 2400 ml 1500 ml 800 ml Balance -2350 ml -1500 ml 0 ml YEIMY HICKEY MD May 15, 2021 11:18
--- NOTE | 2021-05-15 11:26 | PDOC ---
[facility] PROGRESS NOTE Date of Service DOS: DATE: 05/15/21 TIME: 11:23 Chief Complaint Chief Complaint Lower abdominal pain History of Present Illness History of Present Illness 65-year-old male with a history of CAD status post CABG presents to the emergency department with multiple complaints including abdominal pain around his hernia site that started yesterday. He reports that he has been sore around his hernia for several months, but last night he had increasing pain in the hernia area notes that his stools have been lower caliber without any looseness for the last several days. Denies any blood. He reports that he feels like he is going to pass out at times that has been intermittent for the last several weeks. He denies any chest pain. He admits to some shortness of breath without cough or fever. Denies any vomiting or nausea. He reports his pain is worse upon going up the stairs in his abdomen. He denies any acute trauma. Patient also reporting notably increased swelling in his lower extremities and scrotum. 05/13 Patient examined and evaluated at bedside. Definitely fluid overloaded still discussed with cardiology they are planning to start milrinone. Says he is urinating little bit better less painful. Been able to get up and move around the chair. With all the burning patient is having with urination and symptomatic as a male will start Rocephin for suspected UTI. Urine results essentially 50-50. 05/14 Patient evaluated and examined at bedside. Patient really have much complaint said he does still at times feel little short of breath and does still feel pretty swollen however has noticed it has improved. Net -1500 mL yesterday. Kidney function stable with all this diuresis. Continue milrinone drip. Continue Lasix. If no notable increase in output may be consider Bumex 05/15 Patient evaluated and examined at bedside. Reports that his breathing continues to improve. Noticed that his swelling is improving as well. Urination much easier. Continuing aggressive diuresis for this man Vitals/I&O Vitals/I&O: Vital Signs Date Time Temp Pulse Resp B/P (MAP) Pulse Ox O2 Delivery O2 Flow Rate FiO2 05/15/21 10:58 98.3 65 18 127/67 (87) 99 Nasal Cannula 2.0 98.3 I & O 05/14/21 05/14/21 05/15/21 15:00 23:00 07:00 Intake Total 50 ml 800 ml Output Total 2400 ml 1500 ml 800 ml Balance -2350 ml -1500 ml 0 ml Physical Exam General: Alert, Oriented X3, Cooperative, No acute distress Heart: Regular rate (SR), Normal S1, Normal S2, Other (distant heart sounds) Lungs: Other (Course) Abdomen: Soft Extremities: No cyanosis, Other (1+ pitting edema) Skin: No significant lesion Assessment and Plan Assessmemt and Plan Problems Medical Problems: (1) Anasarca Status: Acute Acute on chronic CHF NSTEMI, BPH, UTI, acute hypoxic respiratory failure -Patient presenting with lower abdominal pain, also reporting decreased urine output due to pain. -Patient also reporting notably more swollen -Suspect patient with CHF exacerbation based upon symptoms and clinical presentation. Will treat with IV Lasix and milrinone drip for now. May require something like Bumex if does not diurese appropriately -Unable to insert Riojas catheter due to BPH will try some Flomax -Rocephin for suspected UTI -Elevated troponins demand ischemia -Patient does not know the medications he is currently on. Follows with cardiology at [facility] or [facility] -DVT prophylaxis -Cardiac diet. Fluid restriction -Plan of care discussed with bedside RN Comment Review of Relevant I have reviewed the following items cristian (where applicable) has been applied. Medications: Current Medications Medications (Trade) Dose Ordered Sig/Janes Route PRN Reason Start Time Stop Time Status Last Admin Dose Admin Lisinopril (Prinivil) 10 mg DAILY PO 05/15/21 09:00 05/15/21 08:02 Justifications for Admission Other Justification CASH GOMEZ MD May 15, 2021 11:26
[2021-05-15] MEDS: TAMSULOSIN 0.4 MG CAP.ER.24H. PO SCH (21:09)
[2021-05-15] MEDS: ATORVASTATIN CALCIUM 20 MG TABLET PO SCH (21:09)
[2021-05-16 02:56] VITALS: BP 160/75
[2021-05-16 07:00] VITALS: BP 166/75
[2021-05-16] MEDS: LACTOBACILLUS RHAMNOSUS GG 1 CAPSULE. PO SCH ×2 (08:06→20:34)
[2021-05-16] MEDS: POTASSIUM CHLORIDE 20 MEQ TABLET.ER. PO SCH (08:06)
[2021-05-16] MEDS: ASPIRIN ENTERIC COATED 81 MG TABLET.DR. PO SCH (08:07)
[2021-05-16] MEDS: SENNOSIDES/DOCUSATE 8.6/50MG TABLET. PO SCH ×2 (08:07→20:34)
[2021-05-16] MEDS: LISINOPRIL 10 MG TABLET PO SCH (08:07)
[2021-05-16] MEDS: CARVEDILOL 6.25 MG TABLET. PO SCH ×2 (08:07→17:50)
[2021-05-16] MEDS: FUROSEMIDE 40 MG/4 ML VIAL. IVP SCH ×2 (08:08→15:20)
[2021-05-16 11:00] VITALS: BP 132/64
[2021-05-16] MEDS: cefTRIAXone IV Push 1 GM VIAL. IVP SCH (11:35)
[2021-05-16] MEDS: MILRINONE 20MG/100ML PREMIX 100 ML IV PRN (11:40)
--- NOTE | 2021-05-16 11:47 | PDOC ---
PROGRESS NOTES Date of Service: DATE: 05/16/21 TIME: 11:46 Subjective Subjective Edema and dyspnea improved. Denied any CP Objective Objective Vital Signs Date Time Temp Pulse Resp B/P (MAP) Pulse Ox O2 Delivery O2 Flow Rate FiO2 05/16/21 08:07 77 166/75 05/16/21 08:00 Nasal Cannula 2.0 05/16/21 07:00 98.4 16 99 98.4 Intake and Output 05/16/21 07:00 Intake Total 1040 ml Output Total 5750 ml Balance -4710 ml Intake Oral 1040 ml Output Urine Total 5750 ml Physical Exam Abdomen: Soft Heart: Regular rate (SR), Normal S1, Normal S2, Other (distant heart sounds) Extremities: No cyanosis, Other (1+ pitting edema) General: Alert, Oriented X3, Cooperative, No acute distress HEENT: Atraumatic, Mucous membr. moist/pink Lungs: Other (basilar crackles ) MUSCULOSKELETAL: Osteoarthritic changes both hands Neuro: Normal speech, Sensation intact Psych/Mental Status: Mental status NL, Mood NL Skin: No significant lesion Assessment Assessment 1. Acute on chronic with likely combined systolic and diastolic heart failure. 2D echo showed LVEF 30%. Patient diuresing well with inotropic support with milrinone. 2. NSTEMI: Most probably type II/demand ischemia. Will consider outpatient ischemic work-up. 3. Anasarca: Improved 4. CAD: past CABG, presently chest pain-free. Continue current secondary prevention measures. 5. HTN: Well controlled 6. Abdominal pain: likely from urinary retention but CHF is contributing as well. Improved 7. Moderate aortic stenosis 8. NSVT: No further episodes on telemetry Plan Plan of Care Problems Medical Problems: (1) Anasarca Status: Acute Comment Review of Relevant I have reviewed the following items cristian (where applicable) has been applied. Labs Microbiology 05/12/21 Urine Culture - Final, Complete Vitals/I & O Vital Sign - Last 24 Hours 05/15/21 05/15/21 05/15/21 05/15/21 14:26 16:03 19:42 20:00 Temp 98.6 99.5 98.6 99.5 Pulse 69 65 72 Resp 18 16 B/P (MAP) 119/60 (79) 119/60 145/66 (92) Pulse Ox 100 98 O2 Delivery Nasal Cannula Nasal Cannula Nasal Cannula O2 Flow Rate 2.0 2.0 2.0 05/15/21 05/16/21 05/16/21 05/16/21 23:06 02:56 07:00 08:00 Temp 98.6 98.6 98.4 98.6 98.6 98.4 Pulse 65 72 76 Resp 16 16 16 B/P (MAP) 184/77 (112) 160/75 (103) 166/75 (105) Pulse Ox 99 99 99 O2 Delivery Nasal Cannula Nasal Cannula Nasal Cannula Nasal Cannula O2 Flow Rate 2.0 2.0 2.0 2.0 05/16/21 05/16/21 08:07 08:07 Pulse 82 77 B/P (MAP) 166/75 166/75 Intake and Output 05/15/21 05/15/21 05/16/21 15:00 23:00 07:00 Intake Total 1040 ml 0 ml Output Total 2750 ml 2500 ml 500 ml Balance -2750 ml -1460 ml -500 ml YEIMY HICKEY MD May 16, 2021 11:47
--- NOTE | 2021-05-16 12:00 | PDOC ---
[facility] [facility] PROGRESS NOTE Date of Service DOS: DATE: 05/16/21 TIME: 11:58 Chief Complaint Chief Complaint Lower abdominal pain History of Present Illness History of Present Illness 65-year-old male with a history of CAD status post CABG presents to the emergency department with multiple complaints including abdominal pain around his hernia site that started yesterday. He reports that he has been sore around his hernia for several months, but last night he had increasing pain in the hernia area notes that his stools have been lower caliber without any looseness for the last several days. Denies any blood. He reports that he feels like he is going to pass out at times that has been intermittent for the last several weeks. He denies any chest pain. He admits to some shortness of breath without cough or fever. Denies any vomiting or nausea. He reports his pain is worse upon going up the stairs in his abdomen. He denies any acute trauma. Patient also reporting notably increased swelling in his lower extremities and scrotum. 05/13 Patient examined and evaluated at bedside. Definitely fluid overloaded still discussed with cardiology they are planning to start milrinone. Says he is urinating little bit better less painful. Been able to get up and move around the chair. With all the burning patient is having with urination and symptomatic as a male will start Rocephin for suspected UTI. Urine results essentially 50-50. 05/14 Patient evaluated and examined at bedside. Patient really have much complaint said he does still at times feel little short of breath and does still feel pretty swollen however has noticed it has improved. Net -1500 mL yesterday. Kidney function stable with all this diuresis. Continue milrinone drip. Continue Lasix. If no notable increase in output may be consider Bumex 05/15 Patient evaluated and examined at bedside. Reports that his breathing continues to improve. Noticed that his swelling is improving as well. Urination much easier. Continuing aggressive diuresis for this man 05/16 Patient evaluated and examined at bedside. Says he is doing well today says breathing is great. Does still have some ongoing peripheral edema. Diuresis has picked up notably. Continue current diuresing can give as needed Bumex if he were to slow down. Possible discharge in the next few days. Vitals/I&O Vitals/I&O: Vital Signs Date Time Temp Pulse Resp B/P (MAP) Pulse Ox O2 Delivery O2 Flow Rate FiO2 05/16/21 08:07 77 166/75 05/16/21 08:00 Nasal Cannula 2.0 05/16/21 07:00 98.4 16 99 98.4 I & O 05/15/21 05/15/21 05/16/21 15:00 23:00 07:00 Intake Total 1040 ml 0 ml Output Total 2750 ml 2500 ml 500 ml Balance -2750 ml -1460 ml -500 ml Physical Exam General: Alert, Oriented X3, Cooperative, No acute distress Heart: Regular rate (SR), Normal S1, Normal S2, Other (distant heart sounds) Lungs: Other (Course) Abdomen: Soft Extremities: No cyanosis, Other (1+ pitting edema) Skin: No significant lesion Assessment and Plan Assessmemt and Plan Problems Medical Problems: (1) Anasarca Status: Acute Acute on chronic CHF NSTEMI, BPH, UTI, acute hypoxic respiratory failure -Patient presenting with lower abdominal pain, also reporting decreased urine output due to pain. -Patient also reporting notably more swollen -Suspect patient with CHF exacerbation based upon symptoms and clinical presentation. Will treat with IV Lasix and milrinone drip for now. May require something like Bumex if does not diurese appropriately -Unable to insert Riojas catheter due to BPH will try some Flomax -Rocephin for suspected UTI -Elevated troponins demand ischemia -Patient does not know the medications he is currently on. Follows with cardiology at [facility] or [facility] -DVT prophylaxis -Cardiac diet. Fluid restriction -Plan of care discussed with bedside RN Comment Review of Relevant I have reviewed the following items cristian (where applicable) has been applied. Justifications for Admission Other Justification CASH GOMEZ MD May 16, 2021 12:00
[2021-05-16 15:00] VITALS: BP 140/63
[2021-05-16 19:21] VITALS: BP 149/66
[2021-05-16] MEDS: ATORVASTATIN CALCIUM 20 MG TABLET PO SCH (20:34)
[2021-05-16] MEDS: TAMSULOSIN 0.4 MG CAP.ER.24H. PO SCH (20:34)
[2021-05-16 22:52] VITALS: BP 133/77
[2021-05-17 03:00] VITALS: BP 171/73
[2021-05-17 07:00] VITALS: BP 147/68
--- NOTE | 2021-05-17 08:17 | PDOC ---
[facility] [facility] PROGRESS NOTE Date of Service DOS: DATE: 05/17/21 TIME: 08:08 Chief Complaint Chief Complaint Acute on chronic combined diastolic/systolic dysfunction NSTEMI -demand ischemia Anasarca CAD -history of prior CABG HTN Abdominal pain - likely from urinary retention with CHF as contributing factor Obesity Left inguinal and umbilical hernia: per CT Cardiomyopathy: EF at 30% History of Present Illness History of Present Illness 65-year-old male with a history of CAD status post CABG presents to the emergency department with multiple complaints including abdominal pain around his hernia site that started yesterday. He reports that he has been sore around his hernia for several months, but last night he had increasing pain in the hernia area notes that his stools have been lower caliber without any looseness for the last several days. Denies any blood. He reports that he feels like he is going to pass out at times that has been intermittent for the last several weeks. He denies any chest pain. He admits to some shortness of breath without cough or fever. Denies any vomiting or nausea. He reports his pain is worse upon going up the stairs in his abdomen. He denies any acute trauma. Patient also reporting notably increased swelling in his lower extremities and scrotum. 05/13 Patient examined and evaluated at bedside. Definitely fluid overloaded still discussed with cardiology they are planning to start milrinone. Says he is urinating little bit better less painful. Been able to get up and move around the chair. With all the burning patient is having with urination and symptomatic as a male will start Rocephin for suspected UTI. Urine results essentially 50-50. 05/14 Patient evaluated and examined at bedside. Patient really have much complaint said he does still at times feel little short of breath and does still feel pretty swollen however has noticed it has improved. Net -1500 mL yesterday. Kidney function stable with all this diuresis. Continue milrinone drip. Continue Lasix. If no notable increase in output may be consider Bumex 05/15 Patient evaluated and examined at bedside. Reports that his breathing continues to improve. Noticed that his swelling is improving as well. Urination much easier. Continuing aggressive diuresis for this man 05/16 Patient evaluated and examined at bedside. Says he is doing well today says breathing is great. Does still have some ongoing peripheral edema. Diuresis has picked up notably. Continue current diuresing can give as needed Bumex if he were to slow down. Possible discharge in the next few days. 05/17: Afebrile. Remains on milrinone infusion; -4227 urine output overnight. Still complains of some bilateral leg pain and swelling, but states this is improving. 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 This has previously made him short of breath. Has questions about his level of functionality and what he will be able to do safely upon discharge. Encouraged patient to follow-up with his PCP upon discharge from hospital; has not seen his PCP in a number of years. Echocardiogram from 05/12 showed severe global hypokinesis of the left ventricle, moderate to severe concentric left ventricular hypertrophy, severely impaired EF, 30%. Final urine culture showed no growth; Rocephin has been discontinued. We will continue to diuresis and look to transition to p.o. soon. We will continue diuresis; will need to switch to p.o. Lasix or Bumex once off milrinone. Vitals/I&O Vitals/I&O: Vital Signs Date Time Temp Pulse Resp B/P (MAP) Pulse Ox O2 Delivery O2 Flow Rate FiO2 05/17/21 03:00 98.6 79 16 171/73 (105) 100 Nasal Cannula 2.0 98.6 I & O 05/16/21 05/16/21 05/17/21 15:00 23:00 07:00 Intake Total 348 ml 0 ml Output Total 1150 ml 2475 ml 950 ml Balance -1150 ml -2127 ml -950 ml Physical Exam General: Alert, Oriented X3, Cooperative, No acute distress Heart: Regular rate (SR), Normal S1, Normal S2, Other (distant heart sounds) Lungs: Other (Course) Abdomen: Soft Extremities: No cyanosis, Other (2+ pitting edema) Skin: No significant lesion Assessment and Plan Assessmemt and Plan Problems Medical Problems: (1) Anasarca Status: Acute Comment Review of Relevant I have reviewed the following items cristian (where applicable) has been applied. Justifications for Admission Other Justification DANNIELLE LOPEZ MD May 17, 2021 08:17
[2021-05-17] MEDS: POTASSIUM CHLORIDE 20 MEQ TABLET.ER. PO SCH (09:09)
[2021-05-17] MEDS: LISINOPRIL 10 MG TABLET PO SCH (09:09)
[2021-05-17] MEDS: FUROSEMIDE 40 MG/4 ML VIAL. IVP SCH ×2 (09:09→17:07)
[2021-05-17] MEDS: LACTOBACILLUS RHAMNOSUS GG 1 CAPSULE. PO SCH ×2 (09:09→20:13)
[2021-05-17] MEDS: SENNOSIDES/DOCUSATE 8.6/50MG TABLET. PO SCH ×2 (09:10→20:14)
[2021-05-17] MEDS: ASPIRIN ENTERIC COATED 81 MG TABLET.DR. PO SCH (09:10)
[2021-05-17] MEDS: CARVEDILOL 6.25 MG TABLET. PO SCH (09:10)
--- NOTE | 2021-05-17 09:44 | PDOC ---
BINHEDE JOSE PAOLA 05/17/21 0944: CARDIO Progress Notes Date and Time Date of Service 05/17/21 Time of Evaluation 0945 Subjective Subjective: No Chest Pain, No shortness of breath, No Palpitations Vitals Vitals Vital Signs Date Time Temp Pulse Resp B/P (MAP) Pulse Ox O2 Delivery O2 Flow Rate FiO2 05/17/21 09:10 78 147/68 05/17/21 07:00 98.7 16 100 Nasal Cannula 2.0 98.7 Weight Weight [ ] Input and Output Intake and Output Intake and Output 05/17/21 07:00 Intake Total 348 ml Output Total 4575 ml Balance -4227 ml Intake Oral 300 ml IV Total 48 ml Output Urine Total 4575 ml # Bowel Movements 1 Microbiology Micro Microbiology 05/12/21 Urine Culture - Final, Complete Physical Exam HEENT: Neck Supple W Full Motion Chest: Symmetric LUNGS: Other (diminsihed bases) Heart: RRR (SR with PACs), murmurs (2/6 systolic murmur) Abdomen: Soft N/T Extremities: Other (1+ bilateral LE edema ) Neurology: alert, oriented, follow commands, other (forgetful ) Assessment Assessment 1. 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 2D echo showed LVEF 30%. Better compensated following IV diuresis and inotropic support with milrinone. 2. NSTEMI: Most probably type II/demand ischemia. CP free 3. Anasarca: Improved 4. CAD: past CABG, clinically stable 5. HTN: mildly elevated 6. Moderate aortic stenosis 7. NSVT: No further episodes on telemetry Recommendations Discontinue milrinone gtt Lasix therapy Monitor I & O, daily weights Secondary prevention measures. Consider outpatient ischemic work-up Supportive care Justicifation of Admission Dx: Justifications for Admission: Justification of Admission Dx: Yes YEIMY HICKEY MD 05/17/214: CARDIO Progress Notes Assessment Assessment Patient seen and examined. Agree with PHOTO MANAGER's assessment and plan. Acute on chr systolic HF better compensated Titrate milrinone gtt off as tolerated Plan ischemic eval as outpatient BINH,EDE GUEVARA May 17, 2021 09:44 YEIMY HICKEY MD May 17, 2021 21:04
[2021-05-17 11:00] VITALS: BP 143/67
[2021-05-17] MEDS: MILRINONE 20MG/100ML PREMIX 100 ML IV PRN (12:19)
--- NOTE | 2021-05-17 14:51 | NUR ---
SS following up with discharge planning. SS reviewed pt chart and discussed with pt RN. Pt is currently requiring oxygen at two liters nasal canula. Pt has no home oxygen. COVID19 negative. Pt on IV Lasix. Milrinone drip. PT/OT recommended home with assistance. SS will continue to follow for discharge planning.
[2021-05-17 15:00] VITALS: BP 144/66
[2021-05-17] MEDS: CARVEDILOL 12.5 MG TABLET. PO SCH (17:09)
[2021-05-17 19:30] VITALS: BP 159/67
[2021-05-17] MEDS: TAMSULOSIN 0.4 MG CAP.ER.24H. PO SCH (20:13)
[2021-05-17] MEDS: oxyCODONE/APAP 5/325 1 TAB TABLET PO PRN (20:14)
[2021-05-17] MEDS: ATORVASTATIN CALCIUM 20 MG TABLET PO SCH (20:14)
[2021-05-17 23:19] VITALS: BP 139/67
[2021-05-18 03:19] VITALS: BP 127/61
[2021-05-18 07:00] VITALS: BP 148/72
--- NOTE | 2021-05-18 08:25 | PDOC ---
[facility] [facility] PROGRESS NOTE Date of Service DOS: DATE: 05/18/21 TIME: 08:22 Chief Complaint Chief Complaint Acute on chronic combined diastolic/systolic dysfunction NSTEMI -demand ischemia Anasarca CAD -history of prior CABG HTN Abdominal pain - likely from urinary retention with CHF as contributing factor Obesity Left inguinal and umbilical hernia: per CT Cardiomyopathy: EF at 30% History of Present Illness History of Present Illness 65-year-old male with a history of CAD status post CABG presents to the emergency department with multiple complaints including abdominal pain around his hernia site that started yesterday. He reports that he has been sore around his hernia for several months, but last night he had increasing pain in the hernia area notes that his stools have been lower caliber without any looseness for the last several days. Denies any blood. He reports that he feels like he is going to pass out at times that has been intermittent for the last several weeks. He denies any chest pain. He admits to some shortness of breath without cough or fever. Denies any vomiting or nausea. He reports his pain is worse upon going up the stairs in his abdomen. He denies any acute trauma. Patient also reporting notably increased swelling in his lower extremities and scrotum. 05/13 Patient examined and evaluated at bedside. Definitely fluid overloaded still discussed with cardiology they are planning to start milrinone. Says he is urinating little bit better less painful. Been able to get up and move around the chair. With all the burning patient is having with urination and symptomatic as a male will start Rocephin for suspected UTI. Urine results essentially 50-50. 05/14 Patient evaluated and examined at bedside. Patient really have much complaint said he does still at times feel little short of breath and does still feel pretty swollen however has noticed it has improved. Net -1500 mL yesterday. Kidney function stable with all this diuresis. Continue milrinone drip. Continue Lasix. If no notable increase in output may be consider Bumex 05/15 Patient evaluated and examined at bedside. Reports that his breathing continues to improve. Noticed that his swelling is improving as well. Urination much easier. Continuing aggressive diuresis for this man 05/16 Patient evaluated and examined at bedside. Says he is doing well today says breathing is great. Does still have some ongoing peripheral edema. Diuresis has picked up notably. Continue current diuresing can give as needed Bumex if he were to slow down. Possible discharge in the next few days. 05/17: Afebrile. Remains on milrinone infusion; -4227 urine output overnight. Still complains of some bilateral leg pain and swelling, but states this is improving. 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 This has previously made him short of breath. Has questions about his level of functionality and what he will be able to do safely upon discharge. Encouraged patient to follow-up with his PCP upon discharge from hospital; has not seen his PCP in a number of years. Echocardiogram from 05/12 showed severe global hypokinesis of the left ventricle, moderate to severe concentric left ventricular hypertrophy, severely impaired EF, 30%. Final urine culture showed no growth; Rocephin has been discontinued. We will continue to diuresis and look to transition to p.o. soon. We will continue diuresis; will need to switch to p.o. Lasix or Bumex once off milrinone. 05/18: Notes some improvement in leg swelling. 2850 mL fluid off overnight. Per cardiology, titrate milrinone off as tolerated; continue Lasix twice daily diuresis. Plan ischemic eval as outpatient. Vitals/I&O Vitals/I&O: Vital Signs Date Time Temp Pulse Resp B/P (MAP) Pulse Ox O2 Delivery O2 Flow Rate FiO2 05/18/21 07:00 98.6 69 20 148/72 (97) 100 Nasal Cannula 2.0 98.6 I & O 05/17/21 05/17/21 05/18/21 15:00 23:00 07:00 Intake Total 1400 ml 150 ml Output Total 800 ml 3350 ml 250 ml Balance -800 ml -1950 ml -100 ml Physical Exam General: Alert, Oriented X3, Cooperative, No acute distress Heart: Regular rate (SR), Normal S1, Normal S2, Other (distant heart sounds) Lungs: Other (Course) Abdomen: Soft Extremities: No cyanosis, Other (2+ pitting edema) Skin: No significant lesion Assessment and Plan Assessmemt and Plan Problems Medical Problems: (1) Anasarca Status: Acute Comment Review of Relevant I have reviewed the following items cristian (where applicable) has been applied. Medications: Current Medications Medications (Trade) Dose Ordered Sig/Janes Route PRN Reason Start Time Stop Time Status Last Admin Dose Admin Carvedilol (Coreg) 12.5 mg BIDWMEALS PO 05/17/21 17:00 05/17/21 17:09 Justifications for Admission Other Justification DANNIELLE LOPEZ MD May 18, 2021 08:24
[2021-05-18 10:50] VITALS: BP 137/63
[2021-05-18 11:01] LABS: CALCIUM 8.4 mg/dL (8.5-10.1); CREATININE 1.2 mg/dL (0.7-1.3); GFR 73.8; POTASSIUM 4.2 mmol/L (3.5-5.1)
--- NOTE | 2021-05-18 11:30 | PDOC ---
EDE PURCELL AUTOMOBILE CLUB TRAVEL COUNSELOR 05/18/21 1130: CARDIO Progress Notes Date and Time Date of Service 05/18/21 Time of Evaluation 1130 Subjective Subjective: No Chest Pain, No shortness of breath, No Palpitations Vitals Vitals Vital Signs Date Time Temp Pulse Resp B/P (MAP) Pulse Ox O2 Delivery O2 Flow Rate FiO2 05/18/21 10:50 97.3 69 20 137/63 (87) 100 Nasal Cannula 2.0 97.3 Weight Weight [ ] Input and Output Intake and Output Intake and Output 05/18/21 07:00 Intake Total 1550 ml Output Total 4400 ml Balance -2850 ml Intake Oral 1550 ml Output Urine Total 4400 ml Laboratory Labs Laboratory Tests Test 05/18/21 10:40 Sodium Level 137 mmol/L (136-145) Potassium Level 4.2 mmol/L (3.5-5.1) Chloride Level 98 mmol/L (98-107) Carbon Dioxide Level 35 mmol/L (21-32) Anion Gap 4 (6-14) Blood Urea Nitrogen 17 mg/dL (8-26) Creatinine 1.2 mg/dL (0.7-1.3) Estimated GFR (Cockcroft-Gault) 73.8 Glucose Level 138 mg/dL (70-99) Calcium Level 8.4 mg/dL (8.5-10.1) Microbiology Micro Microbiology 05/12/21 Urine Culture - Final, Complete Physical Exam HEENT: Neck Supple W Full Motion Chest: Symmetric LUNGS: Other (diminsihed bases) Heart: RRR (SR with PACs), murmurs (2/6 systolic murmur) Abdomen: Soft N/T Extremities: Other (trace-1+ bilateral LE edema ) Neurology: alert, oriented, follow commands, other (forgetful ) Assessment Assessment 1. 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 2D echo showed LVEF 30%. Better compensated following IV diuresis and inotropic support with milrinone. off milrinone gtt 2. NSTEMI: Most probably type II/demand ischemia. CP free 3. Anasarca: Improved 4. CAD: past CABG, clinically stable 5. HTN: mildly elevated 6. Moderate aortic stenosis 7. NSVT: No further episodes on telemetry Recommendations Lasix therapy Monitor I & O, daily weights Secondary prevention measures Consider outpatient ischemic work-up Supportive care Justicifation of Admission Dx: Justifications for Admission: Justification of Admission Dx: Yes YEIMY HICKEY MD 05/19/21 0629: CARDIO Progress Notes Assessment Assessment Patient seen and examined 05/18/21. Agree with CHLORINATOR OPERATOR's assessment and plan. Acute on chr systolic HF better compensated, off milrinone gtt. Continue diuretics Plan ischemic eval as outpatient EDE PURCELL APRN May 18, 2021 11:30 YEIMY HICKEY MD May 19, 2021 06:29
[2021-05-18] MEDS: ASPIRIN ENTERIC COATED 81 MG TABLET.DR. PO SCH (11:52)
[2021-05-18] MEDS: SENNOSIDES/DOCUSATE 8.6/50MG TABLET. PO SCH ×2 (11:52→20:29)
[2021-05-18] MEDS: FUROSEMIDE 40 MG/4 ML VIAL. IVP SCH ×2 (11:52→16:31)
[2021-05-18] MEDS: CARVEDILOL 12.5 MG TABLET. PO SCH ×2 (11:52→16:30)
[2021-05-18] MEDS: LACTOBACILLUS RHAMNOSUS GG 1 CAPSULE. PO SCH ×2 (11:52→20:29)
[2021-05-18] MEDS: LISINOPRIL 10 MG TABLET PO SCH (11:53)
[2021-05-18] MEDS: POTASSIUM CHLORIDE 20 MEQ TABLET.ER. PO SCH (11:53)
--- NOTE | 2021-05-18 13:47 | NUR ---
SS following up with discharge planning. SS reviewed pt chart and discussed with pt RN. Pt is currently requiring oxygen at two liters nasal canula. COVID19 negative. Pt has no home oxygen. Pt on IV Lasix. PT/OT recommended home with assistance. Pt has [employer]. SS contacted benefit line and was notified that pt has in network benefits with [facility], ; fax [phone], and [facility] Patient for oxygen. Six minute walk ordered. Referral phoned and faxed to [facility]. SS will continue to follow for discharge planning.
[2021-05-18 15:00] VITALS: BP 125/62
[2021-05-18 19:11] VITALS: BP 121/56
[2021-05-18] MEDS: ATORVASTATIN CALCIUM 20 MG TABLET PO SCH (20:29)
[2021-05-18] MEDS: TAMSULOSIN 0.4 MG CAP.ER.24H. PO SCH (20:29)
[2021-05-18] MEDS: oxyCODONE/APAP 5/325 1 TAB TABLET PO PRN (20:30)
[2021-05-18 23:01] VITALS: BP 144/66
[2021-05-19 03:59] VITALS: BP 132/63
[2021-05-19 07:38] VITALS: BP 141/77
[2021-05-19] MEDS: POTASSIUM CHLORIDE 20 MEQ TABLET.ER. PO SCH (09:46)
[2021-05-19] MEDS: LACTOBACILLUS RHAMNOSUS GG 1 CAPSULE. PO SCH (09:46)
[2021-05-19] MEDS: ASPIRIN ENTERIC COATED 81 MG TABLET.DR. PO SCH (09:46)
[2021-05-19] MEDS: SENNOSIDES/DOCUSATE 8.6/50MG TABLET. PO SCH (09:46)
[2021-05-19] MEDS: CARVEDILOL 12.5 MG TABLET. PO SCH (09:47)
[2021-05-19] MEDS: LISINOPRIL 10 MG TABLET PO SCH (09:47)
[2021-05-19] MEDS: FUROSEMIDE 40 MG/4 ML VIAL. IVP SCH (09:48)
[2021-05-19 10:24] VITALS: BP 171/86
--- NOTE | 2021-05-19 10:32 | NUR ---
SS following up with discharge planning. SS reviewed pt chart and discussed with pt RN. Pt is currently on room air. COVID19 negative. Pt has no home oxygen. PT/OT recommended home with assistance. Pt has no PCP. [facility] unable to accept pt without PCP. Six minute walk ordered to assess oxygen needs. Potential discharge today home with self care. SS contacted pt's niece, Normacarlitos Melendez, , and left message providing update. SS will continue to follow for discharge planning.
--- NOTE | 2021-05-19 11:02 | PDOC ---
BINHEDE JOSE PAOLA 05/19/21 1102: CARDIO Progress Notes Date and Time Date of Service 05/19/21 Time of Evaluation 1100 Subjective Subjective: No Chest Pain, No shortness of breath, No Palpitations Vitals Vitals Vital Signs Date Time Temp Pulse Resp B/P (MAP) Pulse Ox O2 Delivery O2 Flow Rate FiO2 05/19/21 10:24 98.4 71 18 171/86 (114) 97 Room Air 98.4 05/18/21 21:00 2.0 Weight Weight [ ] Input and Output Intake and Output Intake and Output 05/19/21 06:59 Intake Total 1030 ml Output Total 3250 ml Balance -2220 ml Intake Oral 1030 ml Output Urine Total 3250 ml Microbiology Micro Microbiology 05/12/21 Urine Culture - Final, Complete Physical Exam HEENT: Neck Supple W Full Motion Chest: Symmetric LUNGS: Other (diminsihed bases) Heart: RRR (SR with PACs), murmurs (2/6 systolic murmur) Abdomen: Soft N/T Extremities: Other (trace-1+ bilateral LE edema ) Neurology: alert, oriented, follow commands, other (forgetful ) Assessment Assessment 1. 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 2D echo showed LVEF 30%. Better compensated following IV diuresis and inotropic support with milrinone. off milrinone gtt 2. NSTEMI: Most probably type II/demand ischemia. CP free 3. Anasarca: Improved 4. CAD: past CABG, clinically stable 5. HTN: mildly elevated 6. Moderate aortic stenosis 7. NSVT: No further episodes on telemetry Recommendations Lasix therapy; convert to oral Secondary prevention measures Consider outpatient ischemic work-up Supportive care Follow up with Dr. Hickey as scheduled Justicifation of Admission Dx: Justifications for Admission: Justification of Admission Dx: Yes YEIMY HICKEY MD 05/19/212040: CARDIO Progress Notes Assessment Assessment Patient seen and examined. Agree with NET UI DEVELOPER's assessment and plan. Acute on chr systolic HF better compensated, off milrinone gtt. Continue oral diuretics Plan ischemic eval as outpatient BINH,EDEKARINE GUEVARA May 19, 2021 11:02 YEIMY HICKEY MD May 19, 2021 20:41
--- NOTE | 2021-05-19 11:55 | PDOC ---
[facility] [facility] PROGRESS NOTE Date of Service DOS: DATE: 05/19/21 TIME: 11:49 Chief Complaint Chief Complaint Acute on chronic combined diastolic/systolic dysfunction NSTEMI -demand ischemia Anasarca CAD -history of prior CABG HTN Abdominal pain - likely from urinary retention with CHF as contributing factor Obesity Left inguinal and umbilical hernia: per CT Cardiomyopathy: EF at 30% History of Present Illness History of Present Illness 65-year-old male with a history of CAD status post CABG presents to the emergency department with multiple complaints including abdominal pain around his hernia site that started yesterday. He reports that he has been sore around his hernia for several months, but last night he had increasing pain in the hernia area notes that his stools have been lower caliber without any looseness for the last several days. Denies any blood. He reports that he feels like he is going to pass out at times that has been intermittent for the last several weeks. He denies any chest pain. He admits to some shortness of breath without cough or fever. Denies any vomiting or nausea. He reports his pain is worse upon going up the stairs in his abdomen. He denies any acute trauma. Patient also reporting notably increased swelling in his lower extremities and scrotum. 05/13 Patient examined and evaluated at bedside. Definitely fluid overloaded still discussed with cardiology they are planning to start milrinone. Says he is urinating little bit better less painful. Been able to get up and move around the chair. With all the burning patient is having with urination and symptomatic as a male will start Rocephin for suspected UTI. Urine results essentially 50-50. 05/14 Patient evaluated and examined at bedside. Patient really have much complaint said he does still at times feel little short of breath and does still feel pretty swollen however has noticed it has improved. Net -1500 mL yesterday. Kidney function stable with all this diuresis. Continue milrinone drip. Continue Lasix. If no notable increase in output may be consider Bumex 05/15 Patient evaluated and examined at bedside. Reports that his breathing continues to improve. Noticed that his swelling is improving as well. Urination much easier. Continuing aggressive diuresis for this man 05/16 Patient evaluated and examined at bedside. Says he is doing well today says breathing is great. Does still have some ongoing peripheral edema. Diuresis has picked up notably. Continue current diuresing can give as needed Bumex if he were to slow down. Possible discharge in the next few days. 05/17: Afebrile. Remains on milrinone infusion; -4227 urine output overnight. Still complains of some bilateral leg pain and swelling, but states this is improving. 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 This has previously made him short of breath. Has questions about his level of functionality and what he will be able to do safely upon discharge. Encouraged patient to follow-up with his PCP upon discharge from hospital; has not seen his PCP in a number of years. Echocardiogram from 05/12 showed severe global hypokinesis of the left ventricle, moderate to severe concentric left ventricular hypertrophy, severely impaired EF, 30%. Final urine culture showed no growth; Rocephin has been discontinued. We will continue to diuresis and look to transition to p.o. soon. We will continue diuresis; will need to switch to p.o. Lasix or Bumex once off milrinone. 05/18: Notes some improvement in leg swelling. 2850 mL fluid off overnight. Per cardiology, titrate milrinone off as tolerated; continue Lasix twice daily diuresis. Plan ischemic eval as outpatient. 05/19: Patient feels well today, comfortable to discharge home. Discussed with cardiology FACE HARDENER, will transition IV Lasix to p.o. He was discharged home with family care until he is able to establish PCP; at which time he can be set up with home health services. Provide home O2 after 6-minute walk. Plan ischemic eval as outpatient. Greater than 30 minutes spent managing the discharge of this patient. Vitals/I&O Vitals/I&O: Vital Signs Date Time Temp Pulse Resp B/P (MAP) Pulse Ox O2 Delivery O2 Flow Rate FiO2 05/19/21 10:24 98.4 71 18 171/86 (114) 97 Room Air 98.4 05/18/21 21:00 2.0 I & O 05/18/21 05/18/21 05/19/21 15:00 23:00 07:00 Intake Total 530 ml 300 ml 200 ml Output Total 1250 ml 1875 ml 125 ml Balance -720 ml -1575 ml 75 ml Physical Exam General: Alert, Oriented X3, Cooperative, No acute distress Heart: Regular rate (SR), Normal S1, Normal S2, Other (distant heart sounds) Lungs: Other (Course) Abdomen: Soft Extremities: No cyanosis, Other (2+ pitting edema) Skin: No significant lesion Assessment and Plan Assessmemt and Plan Problems Medical Problems: (1) Anasarca Status: Acute Comment Review of Relevant I have reviewed the following items cristian (where applicable) has been applied. Justifications for Admission Other Justification DANNIELLE LOPEZ MD May 19, 2021 11:55
--- NOTE | 2021-05-19 11:59 | PDOC3 ---
Discharge Summary Visit Information Date of Admission: May 12, 2021 Date of Discharge: May 19, 2021 Final Diagnosis Problems Medical Problems: (1) Anasarca Status: Acute Brief Hospital Course Allergies Allergies Coded Allergies Type Severity Reaction Last Updated Verified No Known Drug Allergies 05/11/21 No Vital Signs Vital Signs Date Time Temp Pulse Resp B/P (MAP) Pulse Ox O2 Delivery O2 Flow Rate FiO2 05/19/21 10:24 98.4 71 18 171/86 (114) 97 Room Air 98.4 05/19/21 08:00 2.0 Lab Results Laboratory Tests Test 05/18/21 10:40 Sodium Level 137 mmol/L (136-145) Potassium Level 4.2 mmol/L (3.5-5.1) Chloride Level 98 mmol/L (98-107) Carbon Dioxide Level 35 mmol/L (21-32) Anion Gap 4 (6-14) Blood Urea Nitrogen 17 mg/dL (8-26) Creatinine 1.2 mg/dL (0.7-1.3) Estimated GFR (Cockcroft-Gault) 73.8 Glucose Level 138 mg/dL (70-99) Calcium Level 8.4 mg/dL (8.5-10.1) Brief Hospital Course Mr. Luna is a 65 old male who presented with: Acute on chronic combined diastolic/systolic dysfunction NSTEMI -demand ischemia Anasarca CAD -history of prior CABG HTN Abdominal pain - likely from urinary retention with CHF as contributing factor Obesity Left inguinal and umbilical hernia: per CT Echocardiogram on 05/12/2021 showed EF 30% History of Present Illness 65-year-old male with a history of CAD status post CABG presents to the emergency department with multiple complaints including abdominal pain around his hernia site that started yesterday. He reports that he has been sore around his hernia for several months, but last night he had increasing pain in the hernia area notes that his stools have been lower caliber without any looseness for the last several days. Denies any blood. He reports that he feels like he is going to pass out at times that has been intermittent for the last several weeks. He denies any chest pain. He admits to some shortness of breath without cough or fever. Denies any vomiting or nausea. He reports his pain is worse upon going up the stairs in his abdomen. He denies any acute trauma. Patient also reporting notably increased swelling in his lower extremities and scrotum. 05/13 Patient examined and evaluated at bedside. Definitely fluid overloaded still discussed with cardiology they are planning to start milrinone. Says he is urinating little bit better less painful. Been able to get up and move around the chair. With all the burning patient is having with urination and symptomatic as a male will start Rocephin for suspected UTI. Urine results essentially 50-50. 05/14 Patient evaluated and examined at bedside. Patient really have much complaint said he does still at times feel little short of breath and does still feel pretty swollen however has noticed it has improved. Net -1500 mL yesterday. Kidney function stable with all this diuresis. Continue milrinone drip. Continue Lasix. If no notable increase in output may be consider Bumex 05/15 Patient evaluated and examined at bedside. Reports that his breathing continues to improve. Noticed that his swelling is improving as well. Urination much easier. Continuing aggressive diuresis for this man 05/16 Patient evaluated and examined at bedside. Says he is doing well today says breathing is great. Does still have some ongoing peripheral edema. Diuresis has picked up notably. Continue current diuresing can give as needed Bumex if he were to slow down. Possible discharge in the next few days. 05/17: Afebrile. Remains on milrinone infusion; -4227 urine output overnight. Still complains of some bilateral leg pain and swelling, but states this is improving. 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 This has previously made him short of breath. Has questions about his level of functionality and what he will be able to do safely upon discharge. Encouraged patient to follow-up with his PCP upon discharge from hospital; has not seen his PCP in a number of years. Echocardiogram from 05/12 showed severe global hypokinesis of the left ventricle, moderate to severe concentric left ventricular hypertrophy, severely impaired EF, 30%. Final urine culture showed no growth; Rocephin has been discontinued. We will continue to diuresis and look to transition to p.o. soon. We will continue diuresis; will need to switch to p.o. Lasix or Bumex once off milrinone. 05/18: Notes some improvement in leg swelling. 2850 mL fluid off overnight. Per cardiology, titrate milrinone off as tolerated; continue Lasix twice daily diuresis. Plan ischemic eval as outpatient. 05/19: Patient feels well today, comfortable to discharge home. Discussed with cardiology BUILDING ATTENDANT, will transition IV Lasix to p.o. He was discharged home with family care until he is able to establish PCP; at which time he can be set up with home health services. Had 6-minute walk and did not require any oxygen at rest or with exertion. Plan ischemic eval as outpatient. Greater than 30 minutes spent managing the discharge of this patient. Discharge Information Condition at Discharge: Stable Disposition/Orders: D/C to Home Scheduled Aspirin (Aspirin Ec) 81 Mg Tablet.dr, 81 MG PO DAILYWBKFT for CAD, #30 Ref 2 Prescribed by: DANNIELLE LOPEZ MD on 05/19/211208 Atorvastatin Calcium (Atorvastatin Calcium) 20 Mg Tablet, 20 MG PO QHS for CHF, #30 Ref 2 Prescribed by: DANNIELLE LOPEZ MD on 05/19/211208 Carvedilol (Carvedilol ) 12.5 Mg Tablet, 12.5 MG PO BIDWMEALS for CHF, #60 Ref 2 Prescribed by: DANNIELLE LOPEZ MD on 05/19/211208 Furosemide (Lasix) 40 Mg Tablet, 40 MG PO BID for CHF, #60 Ref 2 Prescribed by: DANNIELLE LOPEZ MD on 05/19/211208 Lisinopril (Lisinopril) 10 Mg Tablet, 10 MG PO DAILY for CHF for 30 Days, #30 Ref 2 Prescribed by: DANNIELLE LOPEZ MD on 05/19/211208 Potassium Chloride (Potassium Chloride ) 20 Meq Tablet.er, 20 MEQ PO DAILYWBKFT for Hypokalemia, #30 Ref 2 Prescribed by: DANNIELLE LOPEZ MD on 05/19/211208 Tamsulosin Hcl (Flomax) 0.4 Mg Cap.er.24h, 0.4 MG PO QHS for BPH, #30 Ref 1 Prescribed by: DANNIELLE LOPEZ MD on 05/19/211208 Discontinued Medications Info (No Known Medications Prior To Admisstion) Each, 1 EACH MC for , (Reported) Entered as Reported by: MICHELLE SLOAN on 05/12/21220 Last Action: New Order on 05/12/21220 by MICHELLE SLOAN Justicifation of Admission Dx: Justifications for Admission: Justification of Admission Dx: Yes DANNIELLE LOPEZ MD May 19, 2021 11:58
[2021-05-19] MEDS ORDERED: POTA20TA4 PO (12:09)
[2021-05-19] MEDS ORDERED: FURO-68 PO (12:09)
[2021-05-19] MEDS ORDERED: CARV12.511 PO (12:09)
[2021-05-19] MEDS ORDERED: ASPI-886 PO (12:09)
[2021-05-19] MEDS ORDERED: TAMS0.4C97 PO (12:09)
[2021-05-19] MEDS ORDERED: ATOR20TA58 PO (12:09)
[2021-05-19] MEDS ORDERED: LISI10TA16 PO (12:09)
[2021-05-19 14:23] VITALS: BP 145/68
--- NOTE | 2021-05-19 16:10 | NUR ---
Discharge Note: NANCY JONES Discharge instructions and discharge home medications reviewed with Patient and a copy given. All questions have been answered and understanding verbalized. Niece and patient understand new medications and all follow up appointments. Pt stable at time of DC.
== END 2021-05-19 16:04 | disposition home or self-care (01) | DRG 280 ==
LOC: ER 18:12 → 6 SOUTH 23:27
PROVIDERS: ADMIT Internal Medicine; ATTEND Internal Medicine
DX: I21.4 Non-ST elevation (NSTEMI) myocardial infarction (principal); I50.43 Acute on chronic combined systolic (congestive) and diastolic (congestive) heart failure; J96.01 Acute respiratory failure with hypoxia; I42.9 Cardiomyopathy, unspecified; I47.2 Ventricular tachycardia; N39.0 Urinary tract infection, site not specified; E27.8 Other specified disorders of adrenal gland; E66.9 Obesity, unspecified; E78.5 Hyperlipidemia, unspecified; E87.6 Hypokalemia; I11.0 Hypertensive heart disease with heart failure; I25.10 Atherosclerotic heart disease of native coronary artery without angina pectoris; I35.0 Nonrheumatic aortic (valve) stenosis; K40.90 Unilateral inguinal hernia, without obstruction or gangrene, not specified as recurrent; K42.9 Umbilical hernia without obstruction or gangrene; N40.0 Benign prostatic hyperplasia without lower urinary tract symptoms; Z79.899 Other long term (current) drug therapy; Z95.1 Presence of aortocoronary bypass graft; Z20.822 Contact with and (suspected) exposure to COVID-19
CPT/HCPCS: 36415; 71045; 74177; 80048; 80053; 80061; 81001; 82962; 83690; 83735; 83880; 84443; 84484; 85025; 85520; 85610; 85730; 87086; 87426; 93005; 93306; 94618; 96361; 96365; 96366; 96375; J0696; J1644; J1940; J2260; J2270; J2405; J2765; J3490; Q9966; Q9967; U0003; U0005; 97116-GP; 97535-GO; 99285-25; G0378

== ENCOUNTER 2021-07-19 07:50 | Outpatient (CLI) | payer OTHER ==
[2021-07-19] VITALS (12 sets, daily range): BP systolic 148–175; BP diastolic 57–96
[~2021-07-19] VITALS: Ht 180.3 cm; Wt 98.2 kg
[~2021-07-19 07:50] MED LIST: ASPI-886 PO; ATOR20TA58 PO; CARV12.511 PO; FURO-68 PO; LISI10TA16 PO; POTA20TA4 PO; TAMS0.4C97 PO
[2021-07-19] MEDS ORDERED: MIDAZOLAM HCL/PF 2 MG/2 ML VIAL. ONE (08:10)
[2021-07-19] MEDS ORDERED: fentaNYL PF VIAL 100 MCG/2 ML VIAL ONE (08:10)
[2021-07-19 08:13] LABS: HEMATOCRIT 44.8 % (39.0-53.0); HEMOGLOBIN 14.8 g/dL (13.0-17.5); RED CELL DISTRIBUTION WIDTH 16.3 % (11.5-14.5); WHITE BLOOD COUNT 8.8 x10^3/uL (4.0-11.0)
[2021-07-19 08:29] LABS: CALCIUM 9.1 mg/dL (8.5-10.1); CREATININE 1.2 mg/dL (0.7-1.3); GFR 73.5; POTASSIUM 4.6 mmol/L (3.5-5.1)
[2021-07-19] MEDS ORDERED: fentaNYL PF VIAL 100 MCG/2 ML VIAL IV ONE (08:30)
[2021-07-19] MEDS ORDERED: MIDAZOLAM HCL/PF 2 MG/2 ML VIAL. IV ONE (08:30)
[2021-07-19] MEDS ORDERED: IODIXANOL 320 MG/ML 100 ML VIAL. IART ONE (08:30)
[2021-07-19] MEDS ORDERED: LIDOCAINE 1% Multi-Dose 20 ML VIAL. INJ ONE (08:30)
[2021-07-19] MEDS ORDERED: IODIXANOL 320 MG/ML 100 ML VIAL. ONE (08:43)
[2021-07-19] MEDS ORDERED: LIDOCAINE 1% Multi-Dose 20 ML VIAL. ONE (08:44)
--- NOTE | 2021-07-19 09:02 | PDOC ---
MODERATE SEDATION ASSESSMENT RISKS/ALTERNATIVES Risks/Alternatives Risks and alternatives of this type of sedation and procedure discussed with: RISK/ALTERNATIVES: Patient H & P ON CHART H & P H & P on chart and reviewed for co-morbid conditions and appropriate labs. H&P ON CHART: Yes STATUS PREG STATUS ASSESSED: N/A MEDS/ALLERGIES REVIEWED Meds/Allergies Reviewed Medications and Allergies including time and route of recently administered narcotics and sedatives. MEDS/ALLERGIES REVIEWED: Yes ASA RATING ASA RATING: III AIRWAY ASSESSMENT Airway Assessment Airway patency, oral function limitations, presence of caps, crowns, dentures, partials, and ability to extend neck assessed. AIRWAY ASSESSMENT: Yes MALLAMPATI SCORE MALLAMPATI SCORE: II PRE-SEDATION ASSESSMENT PRE-SEDATION ASSESSMENT: Yes YEIMY HICKEY MD Jul 19, 2021 09:02
[2021-07-19] MEDS ORDERED: IV 1/2 NORMAL SALINE 1,000 ML IV SCH (10:15)
--- NOTE | 2021-07-19 10:40 | CARD ---
MR#: [id number] Date of Study: 07/19/2021 Ordering Physician: YEIMY ZHENG, Referring Physician: YEIMY ZHENG, Tech: RT Sugar(R) APPROVED REPORT Technologist: RT Sugar(R) Nurse: Fadumo King RN Procedure(s) performed: Right and left heart catheterization and selective coronary angiography MODERATE SEDATION 40MIN. FLUOR TIME 8.1MIN DOSE 65.3GYMC2 88ML CONTRAST INDICATION The indication(s) include : 66-year-old male was recently admitted to [facility] for non-STEMI and congestiv e heart failure and was noted to have cardiomyopathy with LVEF 30 to 35%. Patient complained of refra ctory dyspnea on exertion despite optimal diuresis. He presented today for right and left heart jorge terization for definitive evaluation.. Heart Failure Heart Failure: Yes If Yes, Newly Diagnosed: No If Yes, HF Type: Systolic If Yes, NYHA Class: Class II CASE TECHNIQUE IV conscious sedation was used throughout procedure with appropriate monitoring and was performed in the presence of a registered nurse who was an independent trained observer other than the physician p erforming the procedure. During this case, Fluoroscopy and low osmolar contrast were used for imaging . Specimen(s) Removed: No Estimated Blood loss: 20 cc's. PROCEDURE NARRATIVE After explaining the risk, benefits and alternative options, informed consent was obtained from patie nt. Patient was brought to the cardiac Grinding Room Supervisor and his right groin was prepped and draped in the us ual fashion. 20 cc of 2% lidocaine was infiltrated into the skin and subcutaneous tissues for local anesthesia. Under vascular ultrasound guidance, arterial and venous accesses were obtained in the [facility] common femoral artery and vein respectively and 6 and 8 Norwegian sheaths inserted. A 7.5 Norwegian Sw an-Jorge L catheter was advanced under fluoroscopy guidance and intracardiac pressures, oxygen saturatio ns and cardiac output by Indira method measured. Subsequently, 6 Norwegian JL4 and 6 Norwegian JR4 catheters were used to perform selective angiography of the left and right coronary arteries. LVEDP and trans aortic gradients were measured. Patient tolerated the procedure well. Hemostasis was achieved using Angio-Seal and manual compression. There were no immediate complications. FINDINGS A. RIGHT HEART CATHETERIZATION 1. Intracardiac pressures: Mean right atrial pressure 8 mmHg, right ventricular pressure 75/4 mmHg, pulmonary artery pressure 64/8 mmHg with a mean PA pressure of 30 mmHg and mean pulmonary capillary w edge pressure of 10 mmHg. This is consistent with moderate pulmonary hypertension. 2. Oxygen saturations: Right atrium 76.7%, pulmonary artery 75%, femoral arterial sheath 98.5%. No evidence of intracardiac shunt. 3. Cardiac output by Indira method 5.14 L/min. B. LEFT HEART CATHETERIZATION 1. Hemodynamics: Left ventricular end-diastolic pressure 16 mmHg. No pullback gradient across aorti c valve. 2. Coronary angiography: a. The left main coronary artery arose from the left sinus of Valsalva, gave rise to the left anteri or descending and left circumflex arteries and did not show any significant stenosis. b. The left anterior descending artery did not show any significant stenosis. c. The left circumflex artery was a codominant vessel that did not show any significant stenosis. d. The right coronary artery was a codominant vessel arising from the right sinus of Valsalva that d id not show any significant stenosis. Conclusion 1. No significant coronary artery disease 2. Moderate pulmonary hypertension 3. No evidence of intracardiac shunt Recommendations Optimization of medical therapy for nonischemic cardiomyopathy and repeat 2D echo in 3 months to eval uate the need for AICD implantation Signed by : Yeimy Zheng, Electronically Approved : 07/19/2021 10:39:38
--- NOTE | 2021-07-19 13:20 | NUR ---
Pt ambulated and tolerated PO. Right groin site soft. No change in previous shadowing. PIV dc'd. Discharge instructions reviewed with patient and family. pt dc to home
== END 2021-07-19 13:22 | disposition home or self-care (01) ==
LOC: CCL 07:50
PROVIDERS: ATTEND Internal Medicine Cardiovascular Disease
DX: I11.0 Hypertensive heart disease with heart failure (principal); I50.9 Heart failure, unspecified; R06.09 Other forms of dyspnea; I42.8 Other cardiomyopathies; I21.4 Non-ST elevation (NSTEMI) myocardial infarction; I25.10 Atherosclerotic heart disease of native coronary artery without angina pectoris; N40.0 Benign prostatic hyperplasia without lower urinary tract symptoms; Z79.82 Long term (current) use of aspirin; Z79.899 Other long term (current) drug therapy; Z98.890 Other specified postprocedural states
CPT/HCPCS: 36415; 76937; 80048; 85027; 93460; 99152; 99153; C1769; C1773; C1894; J1644; J2250; J3010; J3490; Q9967; G0269